=== PATIENT | female | born 1990 | race Caucasian/White ===

== ENCOUNTER 2016-12-10 20:11 | Outpatient (CLI) | payer OTHER | END 2016-12-10 21:28 | disposition home or self-care (01) | LOC: FBPOP 20:11 | PROVIDERS: ATTEND Obstetrics & Gynecology | DX: O99.89 Other specified diseases and conditions complicating pregnancy, childbirth and the puerperium (principal); R10.9 Unspecified abdominal pain; M54.9 Dorsalgia, unspecified; Z3A.36 36 weeks gestation of pregnancy | CPT/HCPCS: 59025; G0463; 99213 ==

== ENCOUNTER 2016-12-18 08:53 | Inpatient (IN) | payer OTHER ==
[2016-12-18] MEDS ORDERED: CARBOPROST TROMETHAMINE 250 MCG/ML 1 ML AMP IM PRN (09:31)
[2016-12-18] MEDS ORDERED: LIDOCAINE 1% (PF) 10 MG/ML (30 ML SDV) SQ PRN (09:31)
[2016-12-18] MEDS ORDERED: METHYLERGONOVINE 0.2 MG/ML 1 ML AMP IM PRN (09:31)
[2016-12-18] MEDS ORDERED: TERBUTALINE 1 MG/ML VIAL SQ PRN (09:31)
[2016-12-18] MEDS ORDERED: OXYTOCIN 10 UNIT/ML 1 ML VIAL IM PRN (09:31)
--- NOTE | 2016-12-18 09:44 | P.HPOB ---
History of Present Illness H&P Date: 12/18/16 Chief Complaint: Contractions This is a 26-year-old female 3 para 1 with an estimated date of confinement of 01/11/2017, estimated gestational age of 36-3/7 weeks, who presents to labor and delivery with complaints of contractions that a become stronger through the evening. She was seen in triage earlier in the evening with nausea and vomiting and flulike symptoms. She was given IV hydration and Zofran and did get better for a short while but that became more uncomfortable with contractions and pelvic pressure. She denied any rupture membranes. course has been, located by hip and back pain throughout her . labs: GC/chlamydia-negative Hepatitis B surface antigen-negative Random glucose-84 Hemoglobin-11.8 Rubella-immune Blood type-A+ Antibody screen-negative Toxoplasma screen-negative Syphilis antibody-negative HIV-nonreactive Quad screen-within normal limits Obstetrical ultrasound-normal anatomy One hour Glucola-135 Three-hour Glucola-within normal limits Group B streptococcus-negative Obstetrical history: . History of 1 vaginal delivery at 39 weeks. History of 1 miscarriage. Gynecologic history: No history of sexual transmitted diseases. Social history: She is . Review of Systems Gastrointestinal: Reports abdominal pain, Reports nausea, Reports vomiting Genitourinary: Reports pelvic pain, Reports Past Medical History Additional Past Medical History / Comment(s): anemia, scoliosis History of Any Multi-Drug Resistant Organisms: None Reported Past Surgical History: Orthopedic Surgery (Right arm) Additional Past Surgical History / Comment(s): D&C Past Psychological History: No Psychological Hx Reported Smoking Status: Never smoker Past Alcohol Use History: None Reported Past Drug Use History: None Reported Medications and Allergies Home Medications Medication Instructions Recorded Confirmed Type No Known Home Medications [No 11/24/16 12/18/16 History Known Home Medications] Allergies Allergy/AdvReac Type Severity Reaction Status Date / Time nickel Allergy Rash/Hives Verified 12/18/16 01:38 monosodium glutamate [MSG] AdvReac CONGESTION Verified 12/18/16 01:38 morphine AdvReac LOW OXYGEN Verified 12/18/16 01:38 LEVELS tramadol AdvReac DIZZY Verified 12/18/16 01:38 Exam Osteopathic Statement: *. No significant issues noted on an osteopathic structural exam other than those noted in the History and Physical/Consult. - Vital Signs Vital signs: Intake and Output 12/17/16 12/18/16 12/18/16 22:59 06:59 14:59 Other: Weight 103.873 kg Patient Weight 12/19/16 06:59 Weight 103.873 kg HEENT: Within normal limits Heart: Regular rate and rhythm Lungs: Clear to auscultation bilaterally Abdomen: Cervix: 4-1/2 cm/100%/-2 station heart tones: Reactive Contractions: Every 2-3 minutes Extremities: Negative Homans Assessment and Plan (1) 36 weeks gestation of Status: Acute Plan: Admission for active labor. Epidural anesthesia. Expectant management.
[2016-12-18] MEDS ORDERED: SODIUM CHLORIDE 0.9% 100 ML BAG ONE (09:45)
[2016-12-18] MEDS ORDERED: fentaNYL (PF) 50 MCG/ML 5 ML AMP ONE (09:45)
[2016-12-18] MEDS ORDERED: LACTATED RINGERS 1,000 ML IV SCH ×2 (09:45)
[2016-12-18] MEDS ORDERED: BUPIVACAINE (PF) 0.25% 30 ML VIAL ONE (09:45)
[2016-12-18 09:52] LABS: Basophils % (A) 0 %; CH 28.6; CHCM 32.7; Eosinophils % (A) 1 %; HCT 33.7 % (34.0-46.0); HDW 2.96; HGB 10.9 gm/dL (11.4-16.0); Luc % (Auto) 1; Lymphocytes # (A) 0.5 k/uL (1.0-4.8); Lymphocytes % (A) 5 %; MCH 28.5 pg (25.0-35.0); MCHC 32.3 g/dL (31.0-37.0); Mean Platelet Volume 7.4; Monocytes # (A) 0.3 k/uL (0-1.0); Monocytes % (A) 4 %; Neutrophils # (A) 8.1 k/uL (1.3-7.7); Neutrophils % (A) 89 %; RBC 3.83 m/uL (3.80-5.40); RDW 13.2 % (11.5-15.5); WBC 9.1 k/uL (3.8-10.6); WBC (Perox) 9.58
[2016-12-18 11:37] VITALS: BMI 39.3
--- NOTE | 2016-12-18 12:58 | P.PROBDLV ---
Vaginal Delivery Note - . Vaginal Delivery Note: The patient progressed to complete dilation after artificial rupture membranes with clear fluid noted. She progressed on her own in labor. She did receive epidural anesthesia. Once reaching complete dilation, she began pushing. 's head came to a crown and then delivered across an intact perineum. Baby completely delivered and was placed on mother's abdomen. Nose and mouth were bulb suctioned on mother's abdomen. Cord was clamped and cut and was taken to warmer for evaluation. A viable female is noted with scores of 9 at 1 minute and 10 at 5 minutes. Infant weight is pending at this time. Placenta delivered shortly thereafter, intact, with a three-vessel cord. Uterus contracted well after oxytocin was given and uterine massage was carried out. Inspection of the perineum revealed no perineal lacerations. Estimated blood loss was approximately 100 mL's. Both mother and are in stable condition.
[2016-12-18] MEDS ORDERED: ZOLPIDEM 5 MG TAB PO PRN (13:05)
[2016-12-18] MEDS ORDERED: diphenhydrAMINE 25 MG CAP PO PRN (13:05)
[2016-12-18] MEDS ORDERED: diphenhydrAMINE 50 MG/ML 1 ML VIAL IVP PRN ×2 (13:05)
[2016-12-18] MEDS ORDERED: LANOLIN CREAM 5 GM TUBE TOPICAL PRN (13:05)
[2016-12-18] MEDS ORDERED: SIMETHICONE 80 MG CHEWABLE PO PRN (13:05)
[2016-12-18] MEDS ORDERED: HYDROCORTISONE 2.5% RECTAL CREAM 30 GM TUBE RECTAL PRN (13:05)
[2016-12-18] MEDS ORDERED: diphenhydrAMINE 50 MG CAP PO PRN (13:05)
[2016-12-18] MEDS ORDERED: BENZOCAINE/MENTHOL SPRAY 1 GM/SPRAY AEROSOL TOPICAL PRN (13:05)
[2016-12-18] MEDS ORDERED: WITCH HAZEL 1 EACH MED..PAD TOPICAL PRN (13:05)
[2016-12-18] MEDS ORDERED: OXYTOCIN 30 UNITS/500 ML NS 30 UNIT in SALINE 1 500ML.BAG IV SCH (13:05)
[2016-12-18] MEDS ORDERED: ACETAMINOPHEN TAB 325 MG TAB PO PRN (13:05)
[2016-12-18] MEDS ORDERED: Acetaminophen-Codeine 300-30mg TAB PO PRN ×2 (13:05)
[2016-12-18] MEDS: SENNOSIDES-DOCUSATE SODIUM 1 EACH TAB PO SCH ×2 (20:22→21:06)
[2016-12-19] MEDS: SENNOSIDES-DOCUSATE SODIUM 1 EACH TAB PO SCH ×2 (08:10→19:39)
[2016-12-19] MEDS: IBUPROFEN 600 MG TAB PO PRN ×2 (08:10→16:01)
[2016-12-19 09:09] LABS: Basophils % (A) 0 %; CH 28.7; CHCM 32.9; Eosinophils % (A) 1 %; HCT 31.1 % (34.0-46.0); HDW 2.97; Luc # (Auto) 0.21; Luc % (Auto) 3; Lymphocytes # (A) 0.9 k/uL (1.0-4.8); Lymphocytes % (A) 11 %; MCH 28.3 pg (25.0-35.0); MCHC 32.4 g/dL (31.0-37.0); MCV 87.5 fL (80.0-100.0); Mean Platelet Volume 7.3; Monocytes # (A) 0.5 k/uL (0-1.0); Monocytes % (A) 6 %; Neutrophils # (A) 6.5 k/uL (1.3-7.7); Neutrophils % (A) 80 %; RBC 3.55 m/uL (3.80-5.40); RDW 13.2 % (11.5-15.5); WBC (Perox) 8.39
--- NOTE | 2016-12-19 11:15 | P.PNOBGVD ---
Subjective - Subjective Principal diagnosis: Status post vaginal delivery day 1 Interval history: Patient is doing well. She is bottle feeding. Lochia is decreasing. Pain is fairly well controlled on oral pain medications. Patient reports: Reports appetite normal, Reports voiding normally, Reports pain well controlled, Reports ambulating normally : doing well, bottle feeding Objective - Latest Vital Signs Latest vital signs: Vital Signs Temp Pulse Resp BP 12/19/16 08:00 97.7 F 86 17 133/82 12/19/16 00:00 98.4 F 103 H 16 100/62 12/18/16 20:00 98.0 F 97 16 139/79 12/18/16 16:00 99.9 F H 85 16 115/73 12/18/16 15:05 117 H 16 130/82 12/18/16 14:35 108 H 16 121/65 12/18/16 14:05 103 H 16 119/72 12/18/16 13:50 108 H 16 118/71 12/18/16 13:35 105 H 16 115/70 12/18/16 13:20 100 16 116/65 12/18/16 13:05 98.4 F 108 H 16 120/61 Intake and Output 12/18/16 12/19/16 12/19/16 22:59 06:59 14:59 Other: # Voids 1 1 - Exam Abdomen: Present: normal appearance, soft. Absent: distention, tenderness Uterus: Present: normal, firm. Absent: tenderness - Labs Labs: Abnormal Lab Results - Last 24 Hours (Table) 12/19/16 Range/Units 08:32 RBC 3.55 L (3.80-5.40) m/uL Hgb 10.0 L (11.4-16.0) gm/dL Hct 31.1 L (34.0-46.0) % Lymphocytes # 0.9 L (1.0-4.8) k/uL Assessment and Plan (1) 36 weeks gestation of Narrative/Plan: Impression is status post vaginal delivery day #1. Plan is to discharge home tomorrow. Continue care. Current Visit: Yes Status: Acute Code(s): Z3A.36 - 36 WEEKS GESTATION OF SNOMED Code(s): 58033039
[2016-12-19 16:34] VITALS: RESP 16
[2016-12-20] MEDS: IBUPROFEN 600 MG TAB PO PRN (08:31)
[2016-12-20 08:40] VITALS: BP 116/82; PULSE 94; TEMP 97.5
--- NOTE | 2016-12-20 08:40 | P.DS ---
Providers Date of admission: 12/18/16 09:10 Expected date of discharge: 12/20/16 Attending physician: Clarita Mart Primary care physician: Stated None - Discharge Diagnosis(es) (1) 36 weeks gestation of Current Visit: Yes Status: Acute Hospital Course: This is a 26-year-old female 3 para 1 at 36-4/7 weeks who presented to labor and delivery with active labor. She delivered vaginally a viable female infant on 12/18/2016 with scores of 9 at 1 minute and 10 at 5 minutes and weight of 6 lbs. 14 oz. Her course has been uncomplicated. Lochia is decreasing. Pain is well-controlled with ibuprofen. She is bottle feeding. Vital signs are stable. Abdomen is soft with fundus firm and nontender. Extremities show negative Homans. Impression is status post vaginal delivery day #2. Plan is to discharge home today. Routine instructions are given. She will be given a prescription for ibuprofen for pain as needed. She is advised follow-up in the office in 6 weeks for check. She is advised to call the office if she has any further questions or concerns prior to her appointment time. Procedures: Spontaneous vaginal delivery of a viable female on 12/18/2016 Patient Condition at Discharge: Stable Plan - Discharge Summary New Discharge Prescriptions: Ibuprofen [Motrin] 600 mg PO Q6HR PRN #60 tab PRN Reason: Mild Pain Or Fever >= 100.5 Discharge Medication List Ibuprofen [Motrin] 600 mg PO Q6HR PRN #60 tab 12/19/16 [Rx] Follow up Appointment(s)/Referral(s): Clarita Mart DO [Doctor of Osteopathic Medicine] - 6 Weeks Activity/Diet/Wound Care/Special Instructions: Instructions 1. Do not begin any exercise program for 3 weeks. 2. Do not resume sexual relations for 3 weeks or longer if uncomfortable. 3. You may take tub baths or showers at any time. 4. You may use tampons if desired after 3 weeks. 5. Keep the area of episiotomy (stitches) clean and dry. 6. If you are not nursing, wear a good fitting, supportive bra during the day and limit fluid intake for at least 1 week to prevent breast engorgement. 7. Call the office, [phone], within the next week to make appointment for your 6 week checkup if it has not already been made. 8. Report any of the following occurrences to the doctor promptly: a. Heavy, excessive bleeding b. Chills, fever c. Burning or frequency of urination d. Pain or redness and breasts if nursing e. Increasing pain or swelling in episiotomy (stitches). In addition to the above instructions, the following additional should be followed: 1. No heavy lifting or straining (exercising) until after 6 week checkup. 2. Keep abdominal incision clean and dry: You may wear a dressing if more comfortable. 3. Make office appointment for 10 days after going home or as instructed by her doctor. Discharge Disposition: HOME SELF-CARE
[2016-12-20] MEDS ORDERED: CALCIUM CARBONATE 500 MG CHEWABLE PO PRN (08:53)
[2016-12-20] MEDS: SENNOSIDES-DOCUSATE SODIUM 1 EACH TAB PO SCH (09:47)
== END 2016-12-20 12:00 | disposition home or self-care (01) | DRG 775 ==
LOC: FBPOP 08:53 → 4FBP 09:10
PROVIDERS: ADMIT Obstetrics & Gynecology; ATTEND Obstetrics & Gynecology
PROC: 10E0XZZ Delivery of Products of Conception, External Approach (ICD-10-PCS; principal; 2016-12-18)
PROC: 3E0R3CZ (ICD-10-PCS; principal; 2016-12-18)
PROC: 00HU33Z Insertion of Infusion Device into Spinal Canal, Percutaneous Approach (ICD-10-PCS; principal; 2016-12-18)
PROC: 10907ZC Drainage of Amniotic Fluid, Therapeutic from Products of Conception, Via Natural or Artificial Opening (ICD-10-PCS; principal; 2016-12-18)
DX: O60.14X0 Preterm labor third trimester with preterm delivery third trimester, not applicable or unspecified (principal); Z88.5 Allergy status to narcotic agent; Z37.0 Single live birth; Z3A.36 36 weeks gestation of pregnancy
CPT/HCPCS: 59025; 85025; 88307; 96360; 96375; 99214

== ENCOUNTER → 2017-02-22 | Outpatient (CLI) | payer OTHER ==
[2017-02-22 17:27] LABS: Aty Lym Flag Slight; CH 28.3; CHCM 31.6; HCT 39.8 % (34.0-46.0); HDW 2.13; HGB 12.8 gm/dL (11.4-16.0); MCH 28.9 pg (25.0-35.0); MCHC 32.2 g/dL (31.0-37.0); MCV 89.8 fL (80.0-100.0); Mean Platelet Volume 6.9; RBC 4.43 m/uL (3.80-5.40); RDW 14.7 % (11.5-15.5); WBC 6.1 k/uL (3.8-10.6)
[2017-02-22 17:53] LABS: Add Differential Manual Differential
[2017-02-22 17:56] LABS: Nucleated Red Blood Cells 0 /100 WBC (0-0); Total Cells Counted 100
[2017-02-22 17:57] LABS: Manual Review Performed; Toxic Granulation Present
== END | disposition home or self-care (01) ==
LOC: LABPAT 15:01
PROVIDERS: ATTEND Obstetrics & Gynecology
DX: Z01.812 Encounter for preprocedural laboratory examination (principal)
CPT/HCPCS: 85025

== ENCOUNTER → 2017-06-20 | Outpatient (CLI) | payer OTHER ==
[2017-06-20 11:54] LABS: CH 30.5; HCT 36.6 % (34.0-46.0); HDW 2.08; HGB 12.6 gm/dL (11.4-16.0); MCHC 34.4 g/dL (31.0-37.0); Mean Platelet Volume 7.4; RBC 4.07 m/uL (3.80-5.40); RDW 14.2 % (11.5-15.5); WBC 7.7 k/uL (3.8-10.6)
[2017-06-20 12:06] LABS: Glucose 75 mg/dL (74-99); Non-African American GFR(MDRD) >60 (>60 ml/min/1.73 sqM)
[2017-06-20 12:38] LABS: Hepatitis B Surface Ag Index 0.05
[2017-06-20 15:37] LABS: Treponemal Ab Non-Reactive (Non-Reactive)
[2017-06-21 09:52] LABS: Toxoplasma Antibody (IgG) <3.0 IU/mL (<7.2)
== END | disposition home or self-care (01) ==
LOC: LABWHC1 10:59
PROVIDERS: ATTEND Obstetrics & Gynecology
DX: Z34.81 Encounter for supervision of other normal pregnancy, first trimester (principal); R53.83 Other fatigue
CPT/HCPCS: 36415; 82565; 82947; 85027; 86762; 86777; 86778; 86780; 86850; 86900; 86901; 87340; 87390

== ENCOUNTER → 2017-06-24 | Outpatient (CLI) | payer OTHER ==
--- NOTE | 2017-06-24 07:46 | US ---
EXAMINATION TYPE: US OB <= 14 wk fetus DATE OF EXAM: 06/24/2017 COMPARISON: Previous study dated 05/02/2016. CLINICAL HISTORY: Z36 Confirm Dates. EXAM PERFORMED: Transabdominal (TA) EXAM MEASUREMENTS: GESTATIONAL AGE / DATING Physician Established: not yet established Dates by LMP: (9 weeks/6 days) EDC: 01/21/17 Dates by First Scan: 1st scan today Dates by Current Scan for: (9 weeks/4 days) EDC: 01/23/17 MATERNAL ANATOMY Uterus: 11.5 x 6.4 x 8.2cm Right Ovary: 2.5 x 1.4 x 2.0cm Left Ovary: 3.7 x 1.7 x 1.6cm Post CDS / Adnexa: wnl Presence of free fluid: no GESTATION / SURVEY CRL: 2.7 (9 weeks/4 days) Yolk Sac (normal less than 6mm): 4mm Heart Rate: 168 bpm Rhythm: Normal IUP: Viable IUP Date of LMP: 04/16/17 Beta HcG (if available): not available Viable IUP, dates above. IMPRESSION: VIABLE INTRAUTERINE GESTATION WITH A GESTATIONAL AGE OF 9 WEEKS 4 DAYS +/- 5 DAYS. ESTIMATED DATE OF CONFINEMENT BASED ON THIS EXAMINATION IS
== END | disposition home or self-care (01) ==
LOC: RADUSWWP 07:06
PROVIDERS: ATTEND Obstetrics & Gynecology
DX: Z36 Encounter for antenatal screening of mother (principal); Z3A.09 9 weeks gestation of pregnancy
CPT/HCPCS: 76801

== ENCOUNTER → 2017-08-09 | Outpatient (CLI) | payer OTHER ==
[2017-08-10 10:27] LABS: Alpha Fetoprotein 47.3 ng/mL; Alpha Fetoprotein (M.O.M) 1.82; B-HCG (M.O.M.) 0.53; Gestational Age (days) 3; Human Chorionic Gonadotropin 13.4 IU/mL; Inhibin A (M.O.M.) 0.95; Interpretation SeeBelow; Maternal Age at EDD (Yrs) 29; Smoker No; Unconjugated Estriol (M.O.M.) 1.54
== END | disposition home or self-care (01) ==
LOC: LABWHC1 11:17
PROVIDERS: ATTEND Obstetrics & Gynecology
DX: Z34.82 Encounter for supervision of other normal pregnancy, second trimester (principal)
CPT/HCPCS: 36415; 82105; 82677; 84702; 86336

== ENCOUNTER → 2017-10-08 | Outpatient (CLI) | payer OTHER ==
[2017-10-08 12:13] LABS: CH 30.2; CHCM 32.3; HCT 32.1 % (34.0-46.0); HDW 2.33; HGB 10.4 gm/dL (11.4-16.0); MCH 30.4 pg (25.0-35.0); MCHC 32.2 g/dL (31.0-37.0); MCV 94.2 fL (80.0-100.0); Mean Platelet Volume 7.6; RBC 3.41 m/uL (3.80-5.40); RDW 13.9 % (11.5-15.5); WBC 6.8 k/uL (3.8-10.6)
== END | disposition home or self-care (01) ==
LOC: LABWHC1 10:53
PROVIDERS: ATTEND Obstetrics & Gynecology
DX: Z34.82 Encounter for supervision of other normal pregnancy, second trimester (principal); Z3A.00 Weeks of gestation of pregnancy not specified
CPT/HCPCS: 36415; 82950; 85027

== ENCOUNTER 2017-11-21 17:45 | Observation (INO) | payer OTHER ==
[2017-11-21] MEDS ORDERED: ONDANSETRON 4 MG/2 ML VIAL IM STA (18:52)
[2017-11-21] MEDS: LACTATED RINGERS 1,000 ML IV ONE ×4 (19:11→23:28)
[2017-11-21 19:24] LABS: Basophils % (A) 0 %; Eosinophils % (A) 0 %; HCT 30.9 % (34.0-46.0); HGB 10.1 gm/dL (11.4-16.0); Lymphocytes # (A) 0.5 k/uL (1.0-4.8); Lymphocytes % (A) 6 %; MCH 29.6 pg (25.0-35.0); MCHC 32.5 g/dL (31.0-37.0); MCV 90.9 fL (80.0-100.0); Mean Platelet Volume 7.5; Monocytes # (A) 0.4 k/uL (0-1.0); Monocytes % (A) 5 %; Neutrophils # (A) 6.8 k/uL (1.3-7.7); Neutrophils % (A) 87 %; Platelet Count 274 k/uL (150-450); RDW 12.8 % (11.5-15.5); WBC 7.8 k/uL (3.8-10.6)
[2017-11-21 20:08] LABS: Appearance,Urine Clear (Clear); Bilirubin,Urine Negative (Negative); Blood,Urine Negative (Negative); Color,Urine Yellow; Glucose,Urine (UA) Negative (Negative); Ketones,Urine 4+ (Negative); Leukocyte Esterase,Urine Negative (Negative); Mucus,Urine Few /hpf; Nitrite,Urine Negative (Negative); Protein,Urine 1+ (Negative); Specific Gravity,Urine 1.019 (1.001-1.035); Squamous Epithelial Cell,Urine 2 /hpf (0-4); Urobilinogen,Urine <2.0 mg/dL (<2.0); WBC,Urine 1 /hpf (0-5)
[2017-11-21] MEDS: BETAMET ACET-BETAMETH SOD PHOS 6 MG/ML VIAL IM SCH (20:41)
[2017-11-21] MEDS: BUTORPHANOL 1 MG/ML 1 ML VIAL IV PRN ×2 (20:56→23:29)
[2017-11-21 21:09] VITALS: BMI 40.7
[2017-11-22] MEDS ORDERED: BUTORPHANOL 1 MG/ML 1 ML VIAL IV PRN (02:50)
[2017-11-22] MEDS: LACTATED RINGERS 1,000 ML IV ONE (02:58)
[2017-11-22] MEDS ORDERED: MAG HYDROX/AL HYDROX/SIMETH 30 ML CUP PO PRN (10:00)
--- NOTE | 2017-11-22 10:09 | P.HPOB ---
History of Present Illness H&P Date: 11/22/17 Chief Complaint: contractions, nausea and vomiting This is a 26-year-old female 4 para 2, with a gestational age of 31-2/7 weeks, who presented to labor and delivery with complaints of nausea and vomiting and contractions. She was seen in triage earlier in the day after reporting vomiting since 4:30 in the morning. She was given 1 L of fluid and was not noted to be yelitza regularly at that time. She returned later in the day after she still was unable to hold anything down and she began feeling strong painful contractions and pressure. She denied any rupture of membranes. course was uncomplicated up until this point other than the fact that baby has been diagnosed with a cleft lip and palate and will need surgery post delivery. She does plan to deliver at [facility] and has seen the maternal medicine specialist there. She was noted to be yelitza every 2 minutes upon admission. Her cervix did change in triage from 1 cm to 2 cm per the same nurse. She had 4+ ketones noted on her urinalysis and her FFN was negative. Obstetrical history: . History of 2 vaginal deliveries. Her last delivery was at 36-5/7 weeks. Review of Systems Constitutional: Reports chills, Reports lethargy Eyes: denies blurred vision, denies pain Ears, nose, mouth and throat: Reports sore throat Cardiovascular: Denies chest pain, Denies shortness of breath Respiratory: Reports congestion Gastrointestinal: Reports abdominal pain, Reports diarrhea, Reports nausea, Reports vomiting (actions) Genitourinary: Reports pelvic pain, Reports Musculoskeletal: Reports low back pain, Reports myalgias Neurological: Denies numbness, Denies weakness Psychiatric: Reports anxiety Past Medical History Past Medical History: No Reported History Additional Past Medical History / Comment(s): anemia, scoliosis History of Any Multi-Drug Resistant Organisms: None Reported Past Surgical History: Orthopedic Surgery Additional Past Surgical History / Comment(s): D&C Past Anesthesia/Blood Transfusion Reactions: No Reported Reaction Past Psychological History: No Psychological Hx Reported Smoking Status: Never smoker Past Alcohol Use History: None Reported Past Drug Use History: None Reported - Past Family History Mother Family Medical History: Cancer Father Family Medical History: Diabetes Mellitus Medications and Allergies Home Medications Medication Instructions Recorded Confirmed Type Calcium Carbonate [Tums] 500 mg PO TID PRN 02/28/17 11/21/17 History Allergies Allergy/AdvReac Type Severity Reaction Status Date / Time nickel Allergy Rash/Hives Verified 11/21/17 20:44 monosodium glutamate [MSG] AdvReac CONGESTION Verified 11/21/17 20:44 morphine AdvReac LOW OXYGEN Verified 11/21/17 20:44 LEVELS tramadol AdvReac DIZZY Verified 11/21/17 20:44 Exam Osteopathic Statement: *. No significant issues noted on an osteopathic structural exam other than those noted in the History and Physical/Consult. - Vital Signs Vital signs: Vital Signs Temp Pulse Resp BP Pulse Ox 11/21/17 20:43 99.1 F 101 H 16 101/56 11/21/17 20:19 99.1 F 101 H 16 101/56 97 11/21/17 18:40 97.7 F 118 H 18 135/75 Intake and Output 11/21/17 11/22/17 11/22/17 22:59 06:59 14:59 Intake Total 1000 Balance 1000 Intake: IV 1000 Lactated Ringers 1,000 ml 1000 @ 999 mls/hr IV .Q1H1M ONE Rx#:[id number] Other: # Voids 1 Weight 104.326 kg EENT: Within normal limits Heart: Regular rate and rhythm Lungs: Clear to auscultation bilaterally Abdomen: Soft, nontender Pelvic exam: Cervix is 1-1/2 cm/40%/-2 station but ballotable. heart tones: Are reactive with no contractions noted for several hours now. Extremities: Negative Homans Results Result Diagrams: 11/21/17 19:13 Abnormal Lab Results - Last 24 Hours (Table) 11/21/17 11/21/17 Range/Units 19:13 19:21 RBC 3.40 L (3.80-5.40) m/uL Hgb 10.1 L (11.4-16.0) gm/dL Hct 30.9 L (34.0-46.0) % Lymphocytes # 0.5 L (1.0-4.8) k/uL Urine Protein 1+ H (Negative) Urine Ketones 4+ H (Negative) Urine Mucus Few H (None) /hpf Assessment and Plan (1) labor in third trimester without delivery Current Visit: Yes Status: Acute Code(s): O60.03 - LABOR WITHOUT DELIVERY, THIRD TRIMESTER SNOMED Code(s): 1735383 (2) Vomiting in late , not delivered Current Visit: Yes Status: Acute Code(s): O21.2 - LATE VOMITING OF SNOMED Code(s): 411146604 Plan: Plan is admission for IV hydration. We'll give Celestone 2 doses 24 hours apart. We'll continue with bed rest and observation. Since her contractions have stopped this morning, we'll continue to observe today and await her second dose of Celestone before discharge. If she does break through and starts yelitza again, may need to attempt transfer to [facility]. She may be discharged home on modified bedrest after 2nd Celestone shot. She is advised to followup in the office in 1 week and return if ctxs resume.
--- NOTE | 2017-11-22 10:12 | P.DS ---
Providers Date of admission: 11/21/17 20:29 Expected date of discharge: 11/22/17 Attending physician: Clarita Mart Primary care physician: Stated None - Discharge Diagnosis(es) (1) labor in third trimester without delivery Current Visit: Yes Status: Acute (2) Vomiting in late , not delivered Current Visit: Yes Status: Acute Hospital Course: This is a 26-year-old female 4 para 2 at 31-3/7 weeks who was admitted overnight for nausea and vomiting along with severe dehydration. She was noted to be yelitza regularly and did receive several doses of IV Stadol for pain control. After approximately 3 L of fluid, her contractions began to space out and finally stopped this morning. Her nausea and vomiting has also stopped this morning. I have advised her we will give her regular food and get her up to the shower and moving around her room a little bit. As long as her contractions do not resume, the plan is to discharge her home today after her second Celestone shot this evening. She is advised to continue with modified bedrest with no intercourse. She is advised to follow up in the office in 1 week. She is advised to return to the hospital if any further contraction pattern is noted. Patient Condition at Discharge: Stable Plan - Discharge Summary New Discharge Prescriptions: No Action Calcium Carbonate [Tums] 500 mg PO TID PRN PRN Reason: Heartburn Discharge Medication List Calcium Carbonate [Tums] 500 mg PO TID PRN 02/28/17 [History] Follow up Appointment(s)/Referral(s): Clarita Mart DO [Doctor of Osteopathic Medicine] - 1 Week Activity/Diet/Wound Care/Special Instructions: No intercourse. Off feet as much as possible. Discharge Disposition: HOME SELF-CARE
[2017-11-22 13:01] VITALS: BP 128/73; PULSE 87; RESP 17; TEMP 97.8
[2017-11-22] MEDS: ACETAMINOPHEN TAB 325 MG TAB PO PRN ×2 (14:48→18:34)
[2017-11-22] MEDS: BETAMET ACET-BETAMETH SOD PHOS 6 MG/ML VIAL IM SCH (19:58)
--- NOTE | 2017-11-24 08:53 | P.MSEPDOC ---
Presenting Problems - Arrival Data Date of Arrival on Unit: 11/21/17 Time of Arrival on Unit: 17:45 Mode of Transport: Wheelchair - Complaint OB-Reason for Admission/Chief Complaint: Acute Nausea/Vomiting Comment: reports vomited once since discharged from triage, currently having pelvic pain Medical History - Information : 4 Para: 2 Term: 2 : 0 Abortions: Spontaneous or Elective: 1 Number of Living Children: 2 - Gestational Age Gestational Age by [place] (wks/days): 31 Weeks and 3 Days - History Complications: No Care Review of Systems - Review of Systems Constitutional: No problems Breast: No problems ENT: No problems Cardiovascular: No problems Respiratory: No problems Gastrointestinal: No problems Genitourinary: No problems Musculoskeletal: No problems Neurological: No problems Skin: No problems Comment: vomiting Vital Signs - Temperature Temperature: 97.8 F Temperature Source: Temporal Artery Scan - Pulse Right Brachial Pulse Rate: 87 Pulse Assessment Method: Pulse Oximetry - Respirations Respiratory Rate: 17 Oxygen Delivery Method: Room Air O2 Sat by Pulse Oximetry: 97 - Blood Pressure Right Arm Blood Pressure: 128/73 Blood Pressure Mean: 91 Blood Pressure Source: Automatic Cuff Medical Screen Scoring (Pre) - Cervical Exam Dilation: 1-3 cm = 1 Membranes: Intact - Uterine Contractions Frequency: > 5 minutes apart = 1 Duration: > 40 seconds = 2 - Maternal Vital Signs Maternal Temperature: N/A Maternal Blood Pressure: N/A Signs of Preeclampsia: N/A Maternal Respirations: N/A - Pain Assessment Pain Scale Used: Numeric (1 - 10) Pain Intensity: 7 Pain Description: *Acute Pain Frequency: Intermittent Pain Behavior: Vocalization - Maternal Trauma Maternal Trauma: N/A - Assessment Baseline FHR: 145 Heart Rate - NICHD Category: Category I (Normal) = 0 NST: Reactive Position: N/A - Total Score Total Score (Pre): 4 - Level of Risk Level of Risk: Low (0-5) Physician Notification (Pre) - Physician Notified Physician Notified Date: 11/21/17 Physician Notified Time: 08:40 Physician/Practitioner Notifed:: jesus Spoke With: jesus New Order Received: Yes - Notification Comment Comment: report given, ffn sent, cervical dilation or 1, thick, soft and anterior. contractions and irritabiliy tracing. orders iv hydration and offers zofran if pt was unable to keep home dose down Medical Screen Scoring (Post) - Cervical Exam Dilation: 1-3 cm = 1 Membranes: Intact - Uterine Contractions Frequency: < 36 weeks = 6 Duration: N/A Intensity: N/A - Maternal Vital Signs Maternal Temperature: N/A Maternal Blood Pressure: N/A Signs of Preeclampsia: N/A Maternal Respirations: N/A - Pain Assessment Pain Location and Character: Abdomen Pain Scale Used: Numeric (1 - 10) Pain Intensity: 7 Pain Description: *Acute, Aching, Cramping Pain Frequency: Intermittent Pain Duration: 5 Pain Duration Units: Minutes Pain Behavior: Facial Grimacing, Vocalization Pain Aggravating Factors: Contractions Non-Pharmacological Interventions: Heat - Assessment Heart Rate: 145 Heart Rate - NICHD Category: Category I (Normal) = 0 NST: Reactive Position: N/A Station: N/A - Total Score Total Score (Post): 7 - Post Treatment Level of Risk Post Treatment Level of Risk: Medium (6-9) Physician Notification (Post) - Physician Notified Physician Notified Date: 11/21/17 Physician Notified Time: 20:19 Physician/Practitioner Notified:: Dr. Mart Spoke With: Dr. Mart New Order Received: Yes (Admit pt for OBV) - Notification Comment Comment: reviewed MSE by Jozef Diaz, pt admitted for OBV Disposition - Disposition OB Disposition: Observe Discharge Date: 11/22/17 Discharge Time: 20:00 I agree with the RN Medical Screening Exam: Yes Risk & Benefit of care provided described in d/c instruction: Yes Diagnosis: LABOR WITHOUT DELIVERY, THIRD TRIMESTER
== END 2017-11-22 20:00 | disposition home or self-care (01) ==
LOC: FBPOP 17:45 → 4FBP 20:29
PROVIDERS: ADMIT Obstetrics & Gynecology; ATTEND Obstetrics & Gynecology
DX: O60.03 Preterm labor without delivery, third trimester (principal); E86.0 Dehydration; O21.2 Late vomiting of pregnancy; Z3A.31 31 weeks gestation of pregnancy; Z88.5 Allergy status to narcotic agent; Z91.048 Other nonmedicinal substance allergy status; Z83.3 Family history of diabetes mellitus
CPT/HCPCS: 59025; 96376; 96360; 96372 ×2; 96374; 82731; 85025; 81001; G0463; G0378 ×2; J0702 ×2; J0595; 99214

== ENCOUNTER 2017-12-11 16:45 | Outpatient (CLI) | payer OTHER ==
[2017-12-11 17:16] LABS: Appearance,Urine Cloudy (Clear); Bacteria,Urine Few /hpf; Bilirubin,Urine Negative (Negative); Blood,Urine Negative (Negative); Color,Urine Yellow; Glucose,Urine (UA) Negative (Negative); Ketones,Urine 1+ (Negative); Leukocyte Esterase,Urine Large (Negative); Mucus,Urine Few /hpf; Nitrite,Urine Negative (Negative); Protein,Urine Trace (Negative); RBC,Urine 3 /hpf (0-5); Specific Gravity,Urine 1.016 (1.001-1.035); Squamous Epithelial Cell,Urine 23 /hpf (0-4); Urobilinogen,Urine <2.0 mg/dL (<2.0); WBC,Urine 7 /hpf (0-5)
[2017-12-11] MEDS: LACTATED RINGERS 1,000 ML IV ONE ×2 (17:48→18:22)
[2017-12-11 18:00] VITALS: BP 121/86; PULSE 99; RESP 16; TEMP 97.5
--- NOTE | 2017-12-14 20:05 | P.MSEPDOC ---
Presenting Problems - Arrival Data Date of Arrival on Unit: 12/11/17 Time of Arrival on Unit: 16:50 Mode of Transport: Wheelchair - Complaint OB-Reason for Admission/Chief Complaint: Possible Onset of Labor Comment: pt reports contractions since 1430 this afternoon, reports 8 minutes apart Medical History - Information : 4 Para: 2 Term: 2 : 0 Abortions: Spontaneous or Elective: 1 Number of Living Children: 2 - Gestational Age Gestational Age by [place] (wks/days): 34 Weeks and 1 Days Review of Systems - Review of Systems Constitutional: No problems Breast: No problems ENT: No problems Cardiovascular: No problems Respiratory: No problems Gastrointestinal: No problems Genitourinary: No problems Musculoskeletal: No problems Neurological: No problems Skin: No problems Vital Signs - Temperature Temperature: 97.5 F Temperature Source: Tympanic - Pulse Right Brachial Pulse Rate: 99 Pulse Assessment Method: Automatic Cuff - Respirations Respiratory Rate: 16 Oxygen Delivery Method: Room Air - Blood Pressure Right Arm Blood Pressure: 121/86 Blood Pressure Mean: 97 Blood Pressure Source: Automatic Cuff Medical Screen Scoring (Pre) - Cervical Exam Dilation: 1-3 cm = 1 Membranes: Intact - Uterine Contractions Frequency: > 5 minutes apart = 1 Duration: > 40 seconds = 2 - Maternal Vital Signs Maternal Temperature: N/A Maternal Blood Pressure: N/A Signs of Preeclampsia: N/A Maternal Respirations: N/A - Pain Assessment Pain Location and Character: Upper, Abdomen Pain Scale Used: Numeric (1 - 10) Pain Intensity: 7 Pain Description: *Acute Pain Frequency: Occasional Pain Duration Units: Minutes Pain Behavior: None Exhibited Pain Aggravating Factors: Contractions - Maternal Trauma Maternal Trauma: N/A - Assessment Baseline FHR: 140 Heart Rate - NICHD Category: Category I (Normal) = 0 NST: Reactive Position: N/A Station: N/A - Total Score Total Score (Pre): 4 - Level of Risk Level of Risk: Low (0-5) Physician Notification (Pre) - Physician Notified Physician Notified Date: 12/11/17 Physician Notified Time: 17:30 Physician/Practitioner Notifed:: jacquelyn Spoke With: jacquelyn - Notification Comment Comment: reported pt to triage c/o contractions, reported ffn and ua collected with ua results available. reported reactive nst and contractions 8 to 15 minutes apart with cervical check of 1.5 thick and ballottable. would like ffn sent, iv hydration with 2L bolus. pt may be discharged if nothing changes clinically after iv hydration. Medical Screen Scoring (Post) - Cervical Exam Membranes: Intact - Uterine Contractions Frequency: > 5 minutes apart = 1 Duration: > 40 seconds = 2 Intensity: N/A - Maternal Vital Signs Maternal Temperature: N/A Maternal Blood Pressure: N/A Signs of Preeclampsia: N/A Maternal Respirations: N/A - Assessment Heart Rate - NICHD Category: Category I (Normal) = 0 - Total Score Total Score (Post): 3 - Post Treatment Level of Risk Post Treatment Level of Risk: Low (0-5) Physician Notification (Post) - Notification Comment Comment: Orders to d/c pt if FFN neg. and after fluids infused. Disposition - Disposition OB Disposition: Discharge to home Discharge Date: 12/11/17 Discharge Time: 18:53 I agree with the RN Medical Screening Exam: Yes Risk & Benefit of care provided described in d/c instruction: Yes Diagnosis: FALSE LABOR BEFORE 37 COMPLETED WEEKS OF GEST, THIRD TRI
== END 2017-12-11 18:55 | disposition home or self-care (01) ==
LOC: FBPOP 16:45
PROVIDERS: ATTEND Obstetrics & Gynecology
DX: O47.03 False labor before 37 completed weeks of gestation, third trimester (principal); Z3A.34 34 weeks gestation of pregnancy
CPT/HCPCS: 59025; 96360; 96361; 82731; 81001; G0463; 99214

== ENCOUNTER → 2017-12-16 | Outpatient (CLI) | payer OTHER ==
[2017-12-16 15:13] VITALS: BP 134/82; PULSE 88; RESP 16; TEMP 97.9
--- NOTE | 2017-12-16 16:42 | P.MSEPDOC ---
Presenting Problems - Arrival Data Date of Arrival on Unit: 12/16/17 Time of Arrival on Unit: 14:48 Mode of Transport: Ambulatory - Complaint OB-Reason for Admission/Chief Complaint: NST Medical History - Information : 4 Para: 2 Term: 2 : 0 Abortions: Spontaneous or Elective: 1 Number of Living Children: 2 - Gestational Age Gestational Age by [place] (wks/days): 34 Weeks and 6 Days - History Complications: Prior Review of Systems - Review of Systems Constitutional: No problems Breast: No problems ENT: No problems Cardiovascular: No problems Respiratory: No problems Gastrointestinal: No problems Genitourinary: No problems Musculoskeletal: No problems Neurological: No problems Skin: No problems Vital Signs - Temperature Temperature: 97.9 F Temperature Source: Oral - Pulse Right Brachial Pulse Rate: 88 Pulse Assessment Method: Automatic Cuff - Respirations Respiratory Rate: 16 Oxygen Delivery Method: Room Air O2 Sat by Pulse Oximetry: 98 - Blood Pressure Right Arm Blood Pressure: 134/82 Blood Pressure Mean: 99 Blood Pressure Source: Automatic Cuff Medical Screen Scoring (Pre) - Uterine Contractions Frequency: N/A Duration: N/A Intensity: N/A - Maternal Vital Signs Maternal Temperature: N/A Signs of Preeclampsia: N/A Maternal Respirations: N/A - Pain Assessment Pain Scale Used: Numeric (1 - 10) Pain Intensity: 0 Pain Management Goal: 0 Pain Behavior: None Exhibited - Assessment Baseline FHR: 130 Heart Rate - NICHD Category: Category I (Normal) = 0 - Total Score Total Score (Pre): 0 Physician Notification (Post) - Physician Notified Physician Notified Date: 12/16/17 Physician Notified Time: 15:29 Physician/Practitioner Notified:: Edwin Spoke With: Edwin - Notification Comment Comment: pt may be discharged home. Disposition - Disposition OB Disposition: Discharge to home Discharge Date: 12/16/17 Discharge Time: 15:48 I agree with the RN Medical Screening Exam: Yes Risk & Benefit of care provided described in d/c instruction: Yes Diagnosis: CLEFT LIP, MEDIAN
== END | disposition home or self-care (01) ==
LOC: FBPOP 14:47
PROVIDERS: ATTEND Obstetrics & Gynecology
DX: O35.2XX1 Maternal care for (suspected) hereditary disease in fetus, fetus 1 (principal); Z3A.34 34 weeks gestation of pregnancy
CPT/HCPCS: 59025; G0463; 99213

== ENCOUNTER → 2018-08-30 | Outpatient (CLI) | payer OTHER ==
--- NOTE | 2018-08-31 15:09 | MR ---
EXAMINATION TYPE: MR knee LT wo con DATE OF EXAM: 08/30/2018 COMPARISON: None HISTORY: Pain in left knee TECHNIQUE: Multiplanar, multisequence imaging of the left knee is performed without IV contrast. FINDINGS: MEDIAL MENISCUS: There is some increased signal within the posterior horn of the medial meniscus, no definite extension to the articular surface to suggest tear however LATERAL MENISCUS: Anterior and posterior horns are intact without tear. CRUCIATE LIGAMENTS: The anterior and posterior cruciate ligaments are intact and unremarkable. COLLATERAL LIGAMENTS: The medial collateral ligament and lateral collateral ligament complex are inta ct and unremarkable. EXTENSOR MECHANISM: Visualized quadriceps and patellar tendons are intact. EFFUSION: Minimal joint fluid present. POPLITEAL CYST: No popliteal/diaz cyst. TRICOMPARTMENT SPACES: Maintained CARTILAGE: Within normal limits. BONE MARROW SIGNAL: No focal abnormal marrow signal is appreciated. OTHER: No minimal subcutaneous edema changes are present.. IMPRESSION: Signal within the medial meniscus may be degenerative rather than represent tear.
== END | disposition home or self-care (01) ==
LOC: RADMRIMAIN 20:37
PROVIDERS: ATTEND Internal Medicine
DX: M25.562 Pain in left knee (principal)

== ENCOUNTER → 2019-06-01 | Outpatient (CLI) | payer OTHER ==
--- NOTE | 2019-06-01 08:18 | US ---
EXAMINATION TYPE: US pelvic complete DATE OF EXAM: 06/01/2019 COMPARISON: None CLINICAL HISTORY: 28-year-old female N92.0 Menorrhagia N94.6 Dysmenorrhea; C section x 1; pre endomet rial ablation; , D&C; menorrhagia since menses onset TECHNIQUE: Transabdominal sonographic images of the pelvis were acquired. Transvaginal sonographic images were medically necessary to better assess the following anatomy: Endometrium Date of LMP: approximately 2 weeks ago FINDINGS: EXAM MEASUREMENTS: Uterus: 9.8 x 5.5 x 4.9 cm Endometrial Stripe: 1.3 cm Right Ovary: 3.6 x 2.9 x 2.5 cm Left Ovary: 3.2 x 2.1 x 1.8 cm 1. Uterus: Anteverted; multiple Nabothian cysts in cervix. One of these are slightly more superiorly located towards the right near the region of the lower uterine segment measuring 1.5 cm. 2. Endometrium: thickness is wnl for approximately Day14 LMP 3. Right Ovary: multifollicular with largest = 2.5 x 1.9 x 1.9cm 4. Left Ovary: Follicular change. 5. Bilateral Adnexa: wnl 6. Posterior cul-de-sac: wnl IMPRESSION: 1. Multiple cervical nabothian cysts. One of these cystic structures is located more superiorly near the region of the lower uterine segment towards the right measuring 1.5 cm. This is also suspected to represent a cervical nabothian cyst. A fluid distended scar niche is considered less likely but can be reevaluated in 6-8 weeks to assess for any decompression. 2. Dominant follicle/functional cyst measuring 2.5 cm 18 the right ovary. 3. Endometrial stripe is thickened to the upper limits of normal 1.3 cm, should correspond to the sec retory phase.
== END ==
LOC: RADUSWWP 06:52
PROVIDERS: ATTEND Obstetrics & Gynecology
DX: N88.8 Other specified noninflammatory disorders of cervix uteri (principal); R93.89 Abnormal findings on diagnostic imaging of other specified body structures; N92.0 Excessive and frequent menstruation with regular cycle; N94.6 Dysmenorrhea, unspecified
CPT/HCPCS: 76830; 76856

== ENCOUNTER → 2019-06-15 | Outpatient (CLI) | payer OTHER ==
[2019-06-15 10:47] LABS: Basophils % (A) 1 %; Eosinophils # (A) 0.2 k/uL (0-0.7); Eosinophils % (A) 3 %; HCT 39.4 % (34.0-46.0); HGB 12.9 gm/dL (11.4-16.0); Lymphocytes # (A) 1.7 k/uL (1.0-4.8); Lymphocytes % (A) 28 %; MCH 29.2 pg (25.0-35.0); MCHC 32.8 g/dL (31.0-37.0); MCV 88.9 fL (80.0-100.0); Mean Platelet Volume 6.8; Monocytes # (A) 0.5 k/uL (0-1.0); Monocytes % (A) 9 %; Neutrophils # (A) 3.3 k/uL (1.3-7.7); Neutrophils % (A) 55 %; Platelet Count 340 k/uL (150-450); RBC 4.43 m/uL (3.80-5.40); RDW 13.3 % (11.5-15.5); WBC 6.1 k/uL (3.8-10.6)
== END ==
LOC: LABPAT 09:52
PROVIDERS: ATTEND Obstetrics & Gynecology
DX: Z01.812 Encounter for preprocedural laboratory examination (principal)
CPT/HCPCS: 85025

== ENCOUNTER 2019-06-19 06:09 | Day surgery (SDC) | payer OTHER ==
[2019-06-14 11:10] VITALS: BMI 40.7
--- NOTE | 2019-06-18 20:39 | P.HPOB ---
History of Present Illness H&P Date: 06/18/19 Chief Complaint: Family planning, menorrhagia with regular cycle This is a 28-year-old female 4 para 3 who presents for laparoscopic bilateral tubal ligation via fulguration along with dilation and curettage with hysteroscopy and NovaSure endometrial ablation for menorrhagia with regular cycle. Her menses are occurring monthly but despite control pills she is still bleeding very heavily for at least 2 days out of her cycle. This is also occurring on the third week of her packing instead of the fourth week of the pack. She would like definitive surgical treatment for this problem along with tubal ligation for family planning. Pelvic ultrasound showed a uterus measuring 9.8 x 5.5 x 4.9 cm with an endometrial stripe thickness of 1.3 cm. Her right ovary did have a cyst measuring 2.5 cm. Obstetrical history: . History of 2 vaginal deliveries 1 at full-term and another one at 36 weeks. She also had a emergency section at 37 weeks for abruption with her last child. She did have 1 miscarriage that did require D&C. Gynecologic history: No history of sexually transmitted diseases. Her has had a vasectomy but she would like to have a tubal ligation in addition. Social history: She is . She is a homemaker. Review of Systems Constitutional: Reports fatigue, Denies chills, Denies fever Eyes: bilateral blurred vision, denies pain Ears, nose, mouth and throat: Denies headache, Denies sore throat Cardiovascular: Denies chest pain, Denies shortness of breath Respiratory: Denies cough Gastrointestinal: Denies abdominal pain, Denies diarrhea, Denies nausea, Denies vomiting Genitourinary: Reports dysmenorrhea, Reports menorrhagia Menstruation: Reports menses 1-7 days, Reports period heavy Musculoskeletal: Denies myalgias Integumentary: Denies pruritus, Denies rash Neurological: Denies numbness, Denies weakness Psychiatric: Reports anxiety, Reports depression, Reports difficulty concentrating, Reports insomnia, Reports irritability Endocrine: Reports fatigue Past Medical History Past Medical History: No Reported History Additional Past Medical History / Comment(s): anemia, preclampsia with last History of Any Multi-Drug Resistant Organisms: None Reported Past Surgical History: Section, Orthopedic Surgery Additional Past Surgical History / Comment(s): D&C, fx rt arm and wrist-surgery with hardware, eye surgery for lasy eye age 8 Past Anesthesia/Blood Transfusion Reactions: Previous Problems w/ Anesthesia, Motion Sickness Additional Past Anesthesia/Blood Transfusion Reaction / Comment(s): "takes a long time to come out" Past Psychological History: Anxiety, Depression Smoking Status: Never smoker Past Alcohol Use History: None Reported Past Drug Use History: None Reported - Past Family History Mother Family Medical History: Cancer Additional Family Medical History / Comment(s): breast Father Family Medical History: Diabetes Mellitus Medications and Allergies Home Medications Medication Instructions Recorded Confirmed Type Acetaminophen [Tylenol Extra 500 mg PO DIRECTED PRN 06/14/19 06/14/19 History Strength] Ibuprofen [Motrin] 800 mg PO DIRECTED PRN 06/14/19 06/14/19 History Allergies Allergy/AdvReac Type Severity Reaction Status Date / Time nickel Allergy Rash/Hives Verified 06/14/19 11:01 monosodium glutamate [MSG] AdvReac CONGESTION Verified 06/14/19 11:01 morphine AdvReac LOW OXYGEN Verified 06/14/19 11:01 LEVELS tramadol AdvReac DIZZY Verified 06/14/19 11:01 Exam Osteopathic Statement: *. No significant issues noted on an osteopathic structural exam other than those noted in the History and Physical/Consult. HEENT: Within normal limits Heart: Regular rate and rhythm Lungs: Clear to auscultation bilaterally Abdomen: Soft, nontender Pelvic exam: Uterus is anteverted, nontender, with no adnexal masses or tenderness noted. Extremities: Negative Homans Assessment and Plan (1) Family planning Status: Acute Code(s): Z30.09 - ENCOUNTER FOR OT GENERAL CNSL AND ADVICE ON CONTRACEPTION SNOMED Code(s): 788693382 (2) Menorrhagia with regular cycle Status: Acute Code(s): N92.0 - EXCESSIVE AND FREQUENT MENSTRUATION WITH REGULAR CYCLE SNOMED Code(s): 054472713 Plan: Proceed with dilation and curettage with hysteroscopy and NovaSure endometrial ablation along with laparoscopic bilateral tubal ligation via fulguration. I have discussed the risks, benefits, and alternative therapies for the above- mentioned procedure and for both sedation/anesthesia as well as necessary blood products administration, if indicated, as they pertain to this patient. The patient has indicated her understanding and acceptance of the risks and procedures discussed.
[~2019-06-19 06:09] MED LIST: DEXAMETHASONE SOD PHOSPHATE 10 MG/ML 1 ML VIAL IV ONE; LACTATED RINGERS 1,000 ML IV SCH; MIDAZOLAM 2 MG/2 ML VIAL IV PRN; ONDANSETRON 4 MG/2 ML VIAL IVP ONE; Pre Op ABX Message 1 EACH MISC MISCELLANE ONE
[2019-06-19 06:40] VITALS: TEMP 97.2
[2019-06-19] MEDS ORDERED: SCOPOLAMINE 1.5MG/72HR PATCH TRANSDERM ONE (06:50)
[2019-06-19] MEDS ORDERED: LIDOCAINE 1% 20 ML VIAL (10MG/ML) FOR IV START INTRADERMA ONE (06:50)
[2019-06-19] MEDS ORDERED: MIDAZOLAM 2 MG/2 ML VIAL ONE (07:26)
[2019-06-19] MEDS ORDERED: fentaNYL (PF) 50 MCG/ML 2 ML AMP ONE (07:26)
[2019-06-19] MEDS ORDERED: LIDOCAINE 1% INJ 10MG/ML (20 ML MDV) ONE (07:26)
[2019-06-19] MEDS ORDERED: ONDANSETRON 4 MG/2 ML VIAL ONE (07:26)
[2019-06-19] MEDS ORDERED: KETOROLAC 30 MG/ML 1 ML VIAL ONE (07:26)
[2019-06-19] MEDS ORDERED: PROPOFOL 10 MG/ML 20 ML VIAL IV ONE (07:26)
[2019-06-19] MEDS ORDERED: SUCCINYLCHOLINE CHLORIDE VIAL 200 MG/10 ML VIAL IV ONE (07:26)
[2019-06-19] MEDS ORDERED: BUPIVACAINE (PF) 0.25% 30 ML VIAL SQ ONE ×2 (08:11→08:22)
[2019-06-19] MEDS ORDERED: BACITRACIN OINT 1 EACH PACKET TOPICAL ONE (08:29)
--- NOTE | 2019-06-19 08:30 | P.OP ---
Date of Procedure: 06/19/19 Preoperative Diagnosis: Menorrhagia with regular cycle Family planning Postoperative Diagnosis: Same Procedure(s) Performed: Dilation and curettage with hysteroscopy and NovaSure endometrial ablation Laparoscopic bilateral tubal ligation via fulguration Anesthesia: SCOOTER Surgeon: Clarita Mart Estimated Blood Loss (ml): 10 Pathology: other (Endometrial curettings) Condition: stable Disposition: same day Indications for Procedure: This is a 28-year-old female 4 para 3 who presents for laparoscopic bilateral tubal ligation via fulguration along with dilation and curettage with hysteroscopy and NovaSure endometrial ablation for menorrhagia with regular cycle. Her menses are occurring monthly but despite control pills she is still bleeding very heavily for at least 2 days out of her cycle. This is also occurring on the third week of her packing instead of the fourth week of the pack. She would like definitive surgical treatment for this problem along with tubal ligation for family planning. Pelvic ultrasound showed a uterus measuring 9.8 x 5.5 x 4.9 cm with an endometrial stripe thickness of 1.3 cm. Her right ovary did have a cyst measuring 2.5 cm. Operative Findings: Uterus is anteverted, sounded to 10 cm. Cervix is sounded to 3 cm. Upon hysteroscopy, a fairly dyssynchronous endometrial pattern is noted. Both tubal ostia are visualized. A moderate amount of endometrial curettings are obtained. Upon laparoscopy, uterus is normal contour. Right ovary does appear to have a small simple cyst. There is an omental adhesion to the anterior abdominal wall just above the uterus in the midline. Appendix is visualized and appears normal. Liver edge appears normal. Description of Procedure: The patient is taken to the operating room. She is placed in the dorsal lithotomy position after general anesthesia was given. She is prepped and draped in the normal sterile fashion. Bladder is drained with a catheter and then removed. Pelvic exam is performed under anesthesia. Uterus is found to be anteverted with no adnexal masses. She is placed in slight Trendelenburg position. A right angle retractor is used to visualize the cervix. The anterior lip of the cervix is grasped with a single-tooth tenaculum. Cervix is sounded to 3 cm. Uterus is sounded to 10 cm. Cervix is gently dilated with Sánchez dilators until a hysteroscope could be passed. Hysteroscopy is performed using normal saline. The above noted findings are noted. Next a polyp forceps is introduced. A minimal amount of tissue was obtained. Next medium-sized size sharp curette was placed. A moderate amount of endometrial curettings were obtained. Next NovaSure array was inserted into the endometrial cavity. Length was set at 6.5 cm and width was determined to be 2.5 cm. Next cavity assessment was completed and passed on the first try. Next NovaSure array was fired at 89 W for 71 seconds. Next the array was removed, inspected and then discarded. Next the hysteroscope was reinserted. Uniform charring was noted. Pictures were taken. Hysteroscope was removed. Kroner uterine manipulator is inserted through the cervix and the balloon is inflated. Single-tooth tenaculum was removed from the anterior lip of the cervix. Minimal bleeding was noted. All other instruments removed from the vagina. Attention is then turned to the abdomen after gloves are changed. The infraumbilical fold was grasped in transverse fashion with 2 Allis clamps. A small transverse incision was made with a scalpel. A hemostat was used to carry the incision down to the underlying layer of fascia. A towel clip was placed above the umbilicus for retraction. A 11 mm disposable bladeless trocar was then inserted into the peritoneal cavity under direct visualization. The towel clip did slip off one time and it causes slight bruise on the skin. Once inside, pneumoperitoneum was achieved with CO2 gas. The insert was removed and the camera was placed. Intraperitoneal placement was confirmed. No bleeding was noted. The above-noted findings were made. Next the patient was placed in Trendelenburg position. A small stab incision was made suprapubically and a 5 mm disposable bladeless trocar was inserted into the peritoneal cavity under direct visualization. Once inside pelvic contents were inspected. Next a bipolar Kleppinger instrument was placed through the inferior trocar and the midportion of each tube was brought away from other structures and completely fulgurated on approximate 2-3 cm segment of each tube. Excellent hemostasis was noted. Pictures were taken. Pneumoperitoneum was released after the inferior trocar was removed under direct visualization. The upper trocar was then removed. The fascial incision was closed with 0 Vicryl suture in interrupted [id number] stitch. The skin incisions were then closed with 4-0 Vicryl suture in a subcuticular fashion. Incision sites were then injected with quarter percent Marcaine. Approximately 9 mL were used. Next the kroner uterine manipulator was removed. Minimal bleeding was noted. All sponge and needle counts are correct. The patient is then taken to recovery room in stable condition.
[2019-06-19] MEDS: HYDROmorphone 0.5 MG/0.5 ML SYRINGE IVP PRN ×2 (08:35→08:40)
[2019-06-19] MEDS ORDERED: LACTATED RINGERS 1,000 ML IV ONE ×2 (08:45)
[2019-06-19] MEDS ORDERED: MEPERIDINE 50 MG/ML SYRINGE IVP ONE (08:55)
[2019-06-19 10:27] VITALS: BP 122/70; PULSE 69; RESP 18
== END 2019-06-19 10:29 | disposition home or self-care (01) ==
LOC: OR 06:09
PROVIDERS: ATTEND Obstetrics & Gynecology
DX: Z30.2 Encounter for sterilization (principal); N92.0 Excessive and frequent menstruation with regular cycle; K66.0 Peritoneal adhesions (postprocedural) (postinfection); E66.01 Morbid (severe) obesity due to excess calories; Z68.41 Body mass index [BMI] 40.0-44.9, adult; Z88.5 Allergy status to narcotic agent; Z91.048 Other nonmedicinal substance allergy status
CPT/HCPCS: 81025; 88305; 58563; 58670; J2250; J0330; J1100; J2175; J2405; J2001; J3010; J1885; J2704; J1170

== ENCOUNTER 2019-10-16 11:29 | Inpatient (IN) | payer MEDICAID, OTHER ==
--- NOTE | 2019-10-16 11:48 | ED ---
General Adult HPI - General Chief complaint: Psychiatric Symptoms Stated complaint: OVERDOSE Time Seen by Provider: 10/16/19 11:32 Source: patient, EMS, RN notes reviewed Mode of arrival: EMS Limitations: no limitations - History of Present Illness Initial comments: Patient is a pleasant 28-year-old female presenting to the emergency department with complaints of depression. Patient states she has a lot of stressors. Patient states the past hour or 2 she took approximately 2 mg of Xanax. Patient admits this was to harm herself. Patient admits to feeling drowsy at this time and states she has not slept in over 24 hours. Patient denies homicidal thoughts. No hallucinations. No physical complaints. No alcohol or street drug use. Patient has previously attempted cutting, last was 1 or 2 weeks ago. - Related Data Home Medications Medication Instructions Recorded Confirmed ALPRAZolam [Xanax] 0.25 mg PO HS PRN 10/16/19 10/16/19 buPROPion SR [Wellbutrin Sr] 150 mg PO DAILY 10/16/19 10/16/19 Allergies Allergy/AdvReac Type Severity Reaction Status Date / Time nickel Allergy Rash/Hives Verified 10/16/19 13:05 monosodium glutamate [MSG] AdvReac CONGESTION Verified 10/16/19 13:05 morphine AdvReac LOW OXYGEN Verified 10/16/19 13:05 LEVELS tramadol AdvReac DIZZY Verified 10/16/19 13:05 Review of Systems ROS Statement: Those systems with pertinent positive or pertinent negative responses have been documented in the HPI. ROS Other: All systems not noted in ROS Statement are negative. Constitutional: Denies: fever Eyes: Denies: eye pain ENT: Denies: ear pain Respiratory: Denies: cough Cardiovascular: Denies: chest pain Endocrine: Denies: fatigue Gastrointestinal: Denies: abdominal pain Genitourinary: Denies: dysuria Musculoskeletal: Denies: back pain Skin: Denies: rash Neurological: Denies: weakness Psychiatric: Reports: depression Past Medical History Past Medical History: No Reported History Additional Past Medical History / Comment(s): anemia, scoliosis History of Any Multi-Drug Resistant Organisms: None Reported Past Surgical History: Orthopedic Surgery Additional Past Surgical History / Comment(s): D&C Past Anesthesia/Blood Transfusion Reactions: No Reported Reaction Past Psychological History: No Psychological Hx Reported Smoking Status: Never smoker Past Alcohol Use History: None Reported Past Drug Use History: None Reported - Past Family History Mother Family Medical History: Cancer Father Family Medical History: Diabetes Mellitus General Exam Limitations: no limitations General appearance: alert, in no apparent distress Head exam: Present: normocephalic Eye exam: Present: normal appearance, PERRL ENT exam: Present: normal oropharynx Neck exam: Present: normal inspection Respiratory exam: Present: normal lung sounds bilaterally Cardiovascular Exam: Present: regular rate, normal rhythm GI/Abdominal exam: Present: soft. Absent: tenderness Extremities exam: Present: normal inspection Neurological exam: Present: alert Psychiatric exam: Present: depressed Skin exam: Present: normal color, abrasion (Mild Healing abrasion left forearm) Course Vital Signs 10/16/19 10/16/19 11:31 12:46 Temperature 98.1 F Pulse Rate 83 Respiratory 16 17 Rate Blood Pressure 119/75 O2 Sat by Pulse 99 Oximetry EKG Findings - EKG Comments: EKG Findings:: Normal sinus rhythm 78. NV 1:30. QRS 80. QT 398. QTC 453. Normal axis. Normal QRS. No acute ST change. Medical Decision Making - Medical Decision Making Patient seen by mental health services, who will admit. - Lab Data Result diagrams: 10/16/19 11:52 10/16/19 11:52 Lab Results 10/16/19 10/16/19 10/16/19 Range/Units 11:52 11:52 11:52 WBC 6.0 (3.8-10.6) k/uL RBC 4.51 (3.80-5.40) m/uL Hgb 13.2 (11.4-16.0) gm/dL Hct 40.9 (34.0-46.0) % MCV 90.8 (80.0-100.0) fL MCH 29.3 (25.0-35.0) pg MCHC 32.3 (31.0-37.0) g/dL RDW 12.8 (11.5-15.5) % Plt Count 298 (150-450) k/uL Neutrophils % 56 % Lymphocytes % 28 % Monocytes % 9 % Eosinophils % 2 % Basophils % 2 % Neutrophils # 3.4 (1.3-7.7) k/uL Lymphocytes # 1.7 (1.0-4.8) k/uL Monocytes # 0.6 (0-1.0) k/uL Eosinophils # 0.1 (0-0.7) k/uL Basophils # 0.1 (0-0.2) k/uL PT (9.0-12.0) sec INR (<1.2) Sodium 138 (137-145) mmol/L Potassium 4.3 (3.5-5.1) mmol/L Chloride 109 H (98-107) mmol/L Carbon Dioxide 24 (22-30) mmol/L Anion Gap 5 mmol/L BUN 10 (7-17) mg/dL Creatinine 0.82 (0.52-1.04) mg/dL Est GFR (CKD-EPI)AfAm >90 (>60 ml/min/1.73 sqM) Est GFR (CKD-EPI)NonAf >90 (>60 ml/min/1.73 sqM) Glucose 93 (74-99) mg/dL Calcium 8.6 (8.4-10.2) mg/dL Total Bilirubin 0.5 (0.2-1.3) mg/dL AST 22 (14-36) U/L ALT 20 (9-52) U/L Alkaline Phosphatase 60 (38-126) U/L Total Protein 6.1 L (6.3-8.2) g/dL Albumin 3.2 L (3.5-5.0) g/dL Urine HCG, Qual (Not Detectd) Salicylates <1.0 mg/dL Urine Opiates Screen Not Detected (NotDetected) Ur Oxycodone Screen Not Detected (NotDetected) Urine Methadone Screen Not Detected (NotDetected) Ur Propoxyphene Screen Not Detected (NotDetected) Acetaminophen <10.0 ug/mL Ur Barbiturates Screen Not Detected (NotDetected) U Tricyclic Antidepress Not Detected (NotDetected) Ur Phencyclidine Scrn Not Detected (NotDetected) Ur Amphetamines Screen Not Detected (NotDetected) U Methamphetamines Scrn Not Detected (NotDetected) U Benzodiazepines Scrn Detected H (NotDetected) Urine Cocaine Screen Not Detected (NotDetected) U Marijuana (THC) Screen Not Detected (NotDetected) Serum Alcohol <10 mg/dL 10/16/19 10/16/19 Range/Units 11:52 11:52 WBC (3.8-10.6) k/uL RBC (3.80-5.40) m/uL Hgb (11.4-16.0) gm/dL Hct (34.0-46.0) % MCV (80.0-100.0) fL MCH (25.0-35.0) pg MCHC (31.0-37.0) g/dL RDW (11.5-15.5) % Plt Count (150-450) k/uL Neutrophils % % Lymphocytes % % Monocytes % % Eosinophils % % Basophils % % Neutrophils # (1.3-7.7) k/uL Lymphocytes # (1.0-4.8) k/uL Monocytes # (0-1.0) k/uL Eosinophils # (0-0.7) k/uL Basophils # (0-0.2) k/uL PT 10.1 (9.0-12.0) sec INR 0.9 (<1.2) Sodium (137-145) mmol/L Potassium (3.5-5.1) mmol/L Chloride (98-107) mmol/L Carbon Dioxide (22-30) mmol/L Anion Gap mmol/L BUN (7-17) mg/dL Creatinine (0.52-1.04) mg/dL Est GFR (CKD-EPI)AfAm (>60 ml/min/1.73 sqM) Est GFR (CKD-EPI)NonAf (>60 ml/min/1.73 sqM) Glucose (74-99) mg/dL Calcium (8.4-10.2) mg/dL Total Bilirubin (0.2-1.3) mg/dL AST (14-36) U/L ALT (9-52) U/L Alkaline Phosphatase (38-126) U/L Total Protein (6.3-8.2) g/dL Albumin (3.5-5.0) g/dL Urine HCG, Qual Not Detected (Not Detectd) Salicylates mg/dL Urine Opiates Screen (NotDetected) Ur Oxycodone Screen (NotDetected) Urine Methadone Screen (NotDetected) Ur Propoxyphene Screen (NotDetected) Acetaminophen ug/mL Ur Barbiturates Screen (NotDetected) U Tricyclic Antidepress (NotDetected) Ur Phencyclidine Scrn (NotDetected) Ur Amphetamines Screen (NotDetected) U Methamphetamines Scrn (NotDetected) U Benzodiazepines Scrn (NotDetected) Urine Cocaine Screen (NotDetected) U Marijuana (THC) Screen (NotDetected) Serum Alcohol mg/dL Disposition Clinical Impression: Depression, Suicidal ideation Disposition: TRANSFER TO PSYCH HOSP/UNIT Is patient prescribed a controlled substance at d/c from ED?: No Referrals: Deyanira Gutierrez MD [Primary Care Provider] - 1-2 days Decision Time: 16:06
[2019-10-16 12:18] LABS: Basophils # (A) 0.1 k/uL (0-0.2); Basophils % (A) 2 %; Eosinophils # (A) 0.1 k/uL (0-0.7); Eosinophils % (A) 2 %; HCT 40.9 % (34.0-46.0); HGB 13.2 gm/dL (11.4-16.0); Lymphocytes # (A) 1.7 k/uL (1.0-4.8); Lymphocytes % (A) 28 %; MCH 29.3 pg (25.0-35.0); MCHC 32.3 g/dL (31.0-37.0); MCV 90.8 fL (80.0-100.0); Mean Platelet Volume 6.8; Monocytes # (A) 0.6 k/uL (0-1.0); Monocytes % (A) 9 %; Neutrophils # (A) 3.4 k/uL (1.3-7.7); Neutrophils % (A) 56 %; Platelet Count 298 k/uL (150-450); RBC 4.51 m/uL (3.80-5.40); RDW 12.8 % (11.5-15.5)
[2019-10-16 12:26] LABS: INR 0.9 (<1.2); Prothrombin Time 10.1 sec (9.0-12.0)
[2019-10-16 12:27] LABS: Amphetamine Screen,Urine Not Detected (NotDetected); Barbiturate Screen,Urine Not Detected (NotDetected); Benzodiazepines Screen,Urine Detected (NotDetected); Cocaine Screen,Urine Not Detected (NotDetected); Methadone Screen, Urine Not Detected (NotDetected); Opiate Screen,Urine Not Detected (NotDetected); Oxycodone Screen, Urine Not Detected (NotDetected); Phencyclidine Screen,Urine Not Detected (NotDetected); Tricyclic Antidepressant,Urine Not Detected (NotDetected); Urn Cannabinoid Scrn Not Detected (NotDetected)
[2019-10-16 12:29] LABS: ALT 20 U/L (9-52); AST 22 U/L (14-36); Acetaminophen <10.0 ug/mL; African American GFR (CKD) >90 (>60 ml/min/1.73 sqM); Albumin 3.2 g/dL (3.5-5.0); Alcohol <10 mg/dL; Alkaline Phosphatase 60 U/L (38-126); Anion Gap 5 mmol/L; Blood Urea Nitrogen 10 mg/dL (7-17); Calcium 8.6 mg/dL (8.4-10.2); Carbon Dioxide 24 mmol/L (22-30); Chloride 109 mmol/L (98-107); Glucose 93 mg/dL (74-99); Non-African American GFR(CKD) >90 (>60 ml/min/1.73 sqM); Salicylate <1.0 mg/dL; Sodium 138 mmol/L (137-145); Total Bilirubin 0.5 mg/dL (0.2-1.3); Total Protein 6.1 g/dL (6.3-8.2)
[2019-10-16 12:32] LABS: Potassium 4.3 mmol/L (3.5-5.1)
[2019-10-16] MEDS ORDERED: MAG HYDROX/AL HYDROX/SIMETH 30 ML CUP PO PRN (17:35)
[2019-10-16] MEDS ORDERED: MAGNESIUM HYDROXIDE 2,400 MG/10 ML CUP PO PRN (17:35)
[2019-10-16] MEDS ORDERED: ACETAMINOPHEN TAB 325 MG TAB PO PRN (17:35)
[2019-10-16 18:50] VITALS: BMI 41.1
[2019-10-16] MEDS ORDERED: INFLUENZA VACCINE (6 MOS+) 60 MCG/0.5 ML SYRINGE IM ONE (18:52)
[2019-10-16] MEDS ORDERED: MELATONIN 5 MG TABLET PO PRN (21:28)
[2019-10-17 08:07] LABS: ALT 21 U/L (9-52); AST 25 U/L (14-36); African American GFR (CKD) >90 (>60 ml/min/1.73 sqM); Albumin 3.1 g/dL (3.5-5.0); Alkaline Phosphatase 48 U/L (38-126); Anion Gap 6 mmol/L; Blood Urea Nitrogen 12 mg/dL (7-17); Calcium 8.5 mg/dL (8.4-10.2); Carbon Dioxide 24 mmol/L (22-30); Chloride 109 mmol/L (98-107); Cholesterol 167 mg/dL (<200); Glucose 94 mg/dL (74-99); HDL Cholesterol 41 mg/dL (40-60); LDL Cholesterol,Calculated 104 mg/dL (0-99); Non-African American GFR(CKD) 87 (>60 ml/min/1.73 sqM); Sodium 139 mmol/L (137-145); Total Bilirubin 0.6 mg/dL (0.2-1.3); Triglycerides 110 mg/dL (<150)
[2019-10-17 08:09] LABS: Potassium 4.7 mmol/L (3.5-5.1)
[2019-10-17 08:10] LABS: Basophils % (A) 1 %; Eosinophils # (A) 0.2 k/uL (0-0.7); Eosinophils % (A) 4 %; HCT 39.3 % (34.0-46.0); HGB 13.2 gm/dL (11.4-16.0); Lymphocytes # (A) 1.9 k/uL (1.0-4.8); Lymphocytes % (A) 35 %; MCH 31.2 pg (25.0-35.0); MCHC 33.6 g/dL (31.0-37.0); MCV 92.8 fL (80.0-100.0); Mean Platelet Volume 6.1; Monocytes # (A) 0.5 k/uL (0-1.0); Monocytes % (A) 8 %; Neutrophils # (A) 2.7 k/uL (1.3-7.7); Neutrophils % (A) 49 %; Platelet Count 304 k/uL (150-450); RBC 4.23 m/uL (3.80-5.40); RDW 12.8 % (11.5-15.5); WBC 5.5 k/uL (3.8-10.6)
[2019-10-17] MEDS ORDERED: INFLUENZA VACCINE (6 MOS+) 60 MCG/0.5 ML SYRINGE IM ONE (09:00)
[2019-10-17] MEDS ORDERED: buPROPion SR 150 MG TABLET.ER PO SCH (09:00)
[2019-10-17 12:49] LABS: Hemoglobin A1C 5.3 % (4.0-6.0)
--- NOTE | 2019-10-17 14:35 | P.HP ---
Psychiatric H&P - . H&P Date: 10/17/19 History & Physical: Allergies Allergy/AdvReac Type Severity Reaction Status Date / Time nickel Allergy Rash/Hives Verified 10/16/19 18:37 monosodium glutamate MSG AdvReac CONGESTION Verified 10/16/19 18:37 morphine AdvReac LOW OXYGEN Verified 10/16/19 18:37 LEVELS tramadol AdvReac DIZZY Verified 10/16/19 18:37 Vital Signs Temp 97.8 F 10/17/19 06:08 Pulse 69 10/17/19 06:08 Resp 15 10/17/19 06:08 BP 103/64 10/17/19 06:08 Pulse Ox 99 10/16/19 11:31 Intake & Output 10/16/19 10/17/19 10/17/19 18:59 06:59 18:59 Weight 104.326 kg Laboratory Last Values WBC 5.5 k/uL (3.8-10.6) 10/17/19 07:22 RBC 4.23 m/uL (3.80-5.40) 10/17/19 07:22 Hgb 13.2 gm/dL (11.4-16.0) 10/17/19 07:22 Hct 39.3 % (34.0-46.0) 10/17/19 07:22 MCV 92.8 fL (80.0-100.0) 10/17/19 07:22 MCH 31.2 pg (25.0-35.0) 10/17/19 07:22 MCHC 33.6 g/dL (31.0-37.0) 10/17/19 07:22 RDW 12.8 % (11.5-15.5) 10/17/19 07:22 Plt Count 304 k/uL (150-450) 10/17/19 07:22 Neutrophils % 49 % 10/17/19 07:22 Lymphocytes % 35 % 10/17/19 07:22 Monocytes % 8 % 10/17/19 07:22 Eosinophils % 4 % 10/17/19 07:22 Basophils % 1 % 10/17/19 07:22 Neutrophils # 2.7 k/uL (1.3-7.7) 10/17/19 07:22 Lymphocytes # 1.9 k/uL (1.0-4.8) 10/17/19 07:22 Monocytes # 0.5 k/uL (0-1.0) 10/17/19 07:22 Eosinophils # 0.2 k/uL (0-0.7) 10/17/19 07:22 Basophils # 0.0 k/uL (0-0.2) 10/17/19 07:22 PT 10.1 sec (9.0-12.0) 10/16/19 11:52 INR 0.9 (<1.2) 10/16/19 11:52 Sodium 139 mmol/L (137-145) 10/17/19 07:22 Potassium 4.7 mmol/L (3.5-5.1) 10/17/19 07:22 Chloride 109 mmol/L (98-107) H 10/17/19 07:22 Carbon Dioxide 24 mmol/L (22-30) 10/17/19 07:22 Anion Gap 6 mmol/L 10/17/19 07:22 BUN 12 mg/dL (7-17) 10/17/19 07:22 Creatinine 0.89 mg/dL (0.52-1.04) 10/17/19 07:22 Est GFR (CKD-EPI)AfAm >90 (>60 ml/min/1.73 sqM) 10/17/19 07:22 Est GFR (CKD-EPI)NonAf 87 (>60 ml/min/1.73 sqM) 10/17/19 07:22 Glucose 94 mg/dL (74-99) 10/17/19 07:[address] Glu mg/dL 105 10/17/19 07:22 Hemoglobin A1c 5.3 % (4.0-6.0) 10/17/19 07:22 Calcium 8.5 mg/dL (8.4-10.2) 10/17/19 07:22 Total Bilirubin 0.6 mg/dL (0.2-1.3) 10/17/19 07:22 AST 25 U/L (14-36) 10/17/19 07:22 ALT 21 U/L (9-52) 10/17/19 07:22 Alkaline Phosphatase 48 U/L (38-126) 10/17/19 07:22 Total Protein 6.0 g/dL (6.3-8.2) L 10/17/19 07:22 Albumin 3.1 g/dL (3.5-5.0) L 10/17/19 07:22 Triglycerides 110 mg/dL (<150) 10/17/19 07:22 Cholesterol 167 mg/dL (<200) 10/17/19 07:22 LDL Cholesterol, Calc 104 mg/dL (0-99) H 10/17/19 07:22 HDL Cholesterol 41 mg/dL (40-60) 10/17/19 07:22 TSH 0.483 mIU/L (0.465-4.680) 10/17/19 07:22 Urine HCG, Qual Not Detected (Not Detectd) 10/16/19 11:52 Salicylates <1.0 mg/dL 10/16/19 11:52 Urine Opiates Screen Not Detected (NotDetected) 10/16/19 11:52 Ur Oxycodone Screen Not Detected (NotDetected) 10/16/19 11:52 Urine Methadone Screen Not Detected (NotDetected) 10/16/19 11:52 Ur Propoxyphene Screen Not Detected (NotDetected) 10/16/19 11:52 Acetaminophen <10.0 ug/mL 10/16/19 11:52 Ur Barbiturates Screen Not Detected (NotDetected) 10/16/19 11:52 U Tricyclic Antidepress Not Detected (NotDetected) 10/16/19 11:52 Ur Phencyclidine Scrn Not Detected (NotDetected) 10/16/19 11:52 Ur Amphetamines Screen Not Detected (NotDetected) 10/16/19 11:52 U Methamphetamines Scrn Not Detected (NotDetected) 10/16/19 11:52 U Benzodiazepines Scrn Detected (NotDetected) H 10/16/19 11:52 Urine Cocaine Screen Not Detected (NotDetected) 10/16/19 11:52 U Marijuana (THC) Screen Not Detected (NotDetected) 10/16/19 11:52 Serum Alcohol <10 mg/dL 10/16/19 11:52 10/17/19 14:27 IDENTIFYING DATA: Patient is a 28-year-old female with a history of depression and anxiety currently lives in a house with her and 3 children and is 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 Patient was directable today upon evaluation over. Be anxious and tearful. Patient states that she has been dealing with several stressors in her life including her stepfather passing away from pancreatic cancer in December of this year, her best friend committed suicide earlier this year, her mom attempting suicide by overdosing and also having several fights with her . She claims that she has been not coping well with all of these stressors including that "it's eating me up inside". Patient claims that she has high anxiety and has been avoiding leaving the house. She states that she has had tearful episodes and has been compliant with her medications Xanax and Wellbutrin however finding it not helpful. She states that yesterday she got into a fight with her and claims that she had no sleep and was feeling anxious and overdosed on Xanax and claimed that she wanted to "leave the world" and techs that her could buy. At that time her came back home and called the police as patient was passed out on her bed. Patient was tearful about it when describing the episode and states that "I regretted it immediately" and described wanting to live for her children. She claims that she has been sleeping approximately 2 hours a night has poor concentration and guilt and poor appetite. Patient denies any suicidal or homicidal ideations intent or plan. At this time patient denies any auditory or visual hallucinations. Patient denies any flight of ideas racing thoughts and increased in goal directed behavior. Patient denies using any recreational drugs at this time denies any cigarettes or alcohol marijuana use. PAST PSYCHIATRIC HISTORY: Patient states that she is currently seeing a [facility] however denies seeing a outpatient psychiatrist. She claims that her primary care provider is prescribing her Xanax and Wellbutrin for the past few months. She denies any previous inpatient psychiatric admissions. She claims that she has a history of cutting behavior on her arms however denied any suicide intent. PMH: Anemia and scoliosis ALLERGIES: as per EMR CHEMICAL DEPENDENCY HISTORY: Denies FAMILY PSYCHIATRIC/SUBSTANCE USE HISTORY: Claims her father has schizophrenia SOCIAL HISTORY: She states that she was born and raised in [facility] and claims to have completed high school. 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 Patient is a [id number] mother with 3 children and is currently unsupported by her . MENTAL STATUS EXAM: General Appearance: Patient appears to be stated age is alert, directable and cooperative. Patient is tearful at times. Poor hygiene and grooming. Behavior: Patient is calmly seated without any agitated behavior. Tearful at times. Speech: Patient's speech is fluent and nonpressured. Soft tone Mood/Affect: Patient reports their mood is depressed and anxious, affect is congruent Suicidality/Homicidality: Patient denies having any suicidal or homicidal ideation intent or plan. Perceptions: Patient denies any auditory or visual hallucinations. Though content/process: There is no evidence of any delusional thought content and thought process is linear and goal-directed. Memory and concentration: AOX3, grossly intact for the purposes of this session. Can spell "WORLD" backwards Judgment and insight: poor/impulsive STRENGTHS/WEAKNESSES: strength is that patient has good support at home, weaknesses that patient has poor coping skills. INTELLECT: average IMPRESSIONS: Major depressive disorder, severe without psychotic features Anxiety disorder unspecified PLAN: -Patient is admitted under voluntary status to [facility]HU for stabilization of psychiatric symptoms and safety. Patient signed adult voluntary form and medication consent and is placed in patient's chart. -Medications : Will start patient on Zoloft 50 mg daily for mood/anxiety. Trazodone 25 mg daily at bedtime for insomnia/mood. Start BuSpar 10 mg twice a day for anxiety. Melatonin when necessary for sleep. -Patient was informed of the risks, benefits and side effects of the medication and patient verbally consented to taking the medications. Patient signed med consent form and was placed in chart. -NRT - not needed as patient does not smoke. -SW on board for discharge planning 10/17/19 14:35
[2019-10-17] MEDS: SERTRALINE 50 MG TAB PO SCH (14:52)
[2019-10-17] MEDS: busPIRone HCl 10 MG TAB PO SCH ×2 (14:52→21:07)
--- NOTE | 2019-10-17 18:34 | P.CONS ---
History of Present Illness - History of Present Illness this is a 28 yo F with no significant past medical history who presents to the mental health unit for signs and symptoms of depression, medcal consult was requested for non specific medical management , pt denies physical complaints to me, no chest pain, no dyspnea, no change in urine or bowel habit , no nausea or vomiting , no abd pain , she is tolerating diet well . no fever. vitals are stable, labs reviewed and showing unremarkable CBC and BMP , TSH 0.48 (WNL), cholesterol not elevated at 167 , LDL mildly elevated at 104. urine preg test is negative , i offered serum preg test however pt refused , risks benefits and alterative are explained Review of Systems CONSTITUTIONAL: No fever, no malaise, no fatigue. HEENT: No recent visual problems or hearing problems. Denied any sore throat. CARDIOVASCULAR: No orthopnea, PND, no palpitations, no syncope. PULMONARY: No shortness of breath, no cough, no hemoptysis. GASTROINTESTINAL: No diarrhea, no nausea, no vomiting, no abdominal pain. Normoactive bowel sounds. NEUROLOGICAL: No headaches, no weakness, no numbness. HEMATOLOGICAL: Denies any bleeding or petechiae. GENITOURINARY: Denies any burning micturition, frequency, or urgency. MUSCULOSKELETAL/RHEUMATOLOGICAL: Denies any joint pain, swelling, or any muscle pain. ENDOCRINE: Denies any polyuria or polydipsia. Past Medical History Past Medical History: No Reported History Additional Past Medical History / Comment(s): anemia, scoliosis History of Any Multi-Drug Resistant Organisms: None Reported Past Surgical History: Orthopedic Surgery Additional Past Surgical History / Comment(s): D&C Past Anesthesia/Blood Transfusion Reactions: No Reported Reaction Past Psychological History: No Psychological Hx Reported Smoking Status: Never smoker Past Alcohol Use History: None Reported Past Drug Use History: None Reported - Past Family History Mother Family Medical History: Cancer Father Family Medical History: Diabetes Mellitus Medications and Allergies Home Medications Medication Instructions Recorded Confirmed Type ALPRAZolam [Xanax] 0.25 mg PO HS PRN 10/16/19 10/16/19 History buPROPion SR [Wellbutrin Sr] 150 mg PO DAILY 10/16/19 10/16/19 History Allergies Allergy/AdvReac Type Severity Reaction Status Date / Time nickel Allergy Rash/Hives Verified 11/19/19 18:37 monosodium glutamate [MSG] AdvReac CONGESTION Verified 10/16/19 18:37 morphine AdvReac LOW OXYGEN Verified 10/16/19 18:37 LEVELS tramadol AdvReac DIZZY Verified 10/16/19 18:37 Physical Exam Vitals: Vital Signs Temp Pulse Pulse Resp BP 10/17/19 06:08 97.8 F 69 15 103/64 10/16/19 18:40 97.4 F L 83 20 GENERAL: The patient is alert and oriented x3, not in any acute distress. obese HEENT: Pupils are round and equally reacting to light. EOMI. No scleral icterus. No conjunctival pallor. Normocephalic, atraumatic. No pharyngeal erythema. No thyromegaly. CARDIOVASCULAR: S1 and S2 present. No murmurs, rubs, or gallops. PULMONARY: Chest is clear to auscultation, no wheezing or crackles. ABDOMEN: Soft, nontender, nondistended, normoactive bowel sounds. No palpable organomegaly. MUSCULOSKELETAL: No joint swelling or deformity. EXTREMITIES: No cyanosis, clubbing, or pedal edema. NEUROLOGICAL: Gross neurological examination did not reveal any focal deficits. SKIN: No rashes. Results CBC & Chem 7: 10/17/19 07:22 10/17/19 07:22 Labs: Abnormal Lab Results - Last 24 Hours (Table) 10/17/19 Range/Units 07:22 Chloride 109 H (98-107) mmol/L Total Protein 6.0 L (6.3-8.2) g/dL Albumin 3.1 L (3.5-5.0) g/dL LDL Cholesterol, Calc 104 H (0-99) mg/dL Assessment and Plan Assessment: -obesity , recommend increased physical activity and avoiding fatty food -depression and other psych illnesses , management as per primary psych team -mildly elevated LDL, diet control and follow up with her pcp upon discharge -dvt px: early mobilization, low risk -gi px: no need we recommend pt to f/u with her pcp in one week post discharge , pt is instructed with the same thank you for consulting us \
[2019-10-17] MEDS: traZODone HCL 50 MG TAB PO SCH (21:07)
[2019-10-18 06:35] VITALS: TEMP 97.7
[2019-10-18] MEDS: SERTRALINE 50 MG TAB PO SCH (08:25)
[2019-10-18] MEDS: busPIRone HCl 10 MG TAB PO SCH ×2 (08:25→21:48)
--- NOTE | 2019-10-18 12:58 | P.PN ---
Progress Note - Text Progress Note Date: 10/18/19 Interval History: Patient was seeing laying down on her bed in her room and was directable and a greeable to speak to va underwriter in the office. Patient claims that she had a "much better" night last night and states that she has not slept that well for months. She states that the trazodone helped her maintain her sleep and she did not awake throughout the night. She also claims that her anxiety has improved fairly along with her depression and states that the Zoloft "is really helping". Patient claims that she did have some mild dizziness yesterday however does not know what to attribute that to. She states that she has been going to the groups and trying to participate as best as she can. Patient spoke about more of the details about her overdose attempt and states that her friend who committed suicide "would not be happy with me". Patient also expressed regret towards her actions. At this time patient denies any suicidal or homical ideations, intent or plan. Patient denies any auditory, visual hallucinations and denies any paranoia or delusions. Patient has been compliant with meds. Mental Status Exam: General Appearance: Patient appears to be stated age is alert, directable and cooperative. Improving hygiene and grooming. Behavior: Patient is calmly seated without any agitated behavior. More directable today. Speech: Patient's speech is fluent and nonpressured. Overinclusive of details at times. Mood/Affect: Patient reports their mood/anxiety is improving, affect is congruent Suicidality/Homicidality: Patient denies having any suicidal or homicidal ideation intent or plan. Perceptions: Patient denies any auditory or visual hallucinations. Though content/process: There is no evidence of any delusional thought content and thought process is linear and goal-directed. Focused on discharge. Memory and concentration: AOX3, grossly intact for the purposes of this session. Judgment and insight: Fair, improving mildly. Assessment Major depressive disorder, severe without psychotic features Anxiety disorder unspecified Plan: -Patient continues to meet criteria for inpatient psychiatric admission for symptom stabilization and safety. Patient has signed adult voluntary form and medication consent and was placed in patient's chart. -Medications: We will increase Zoloft 100 mg daily for mood/anxiety. We'll continue trazodone 25 mg nightly for insomnia/mood. Continue with BuSpar 10 mg twice a day for anxiety. Melatonin when necessary for sleep -NRT - not needed as patient does not smoke. -SW on board for discharge planning. We'll ask mental health social worker to reach out to patient's about any concerns and likely setup discharge for tomorrow b ack home.
[2019-10-18] MEDS: traZODone HCL 50 MG TAB PO SCH (21:48)
[2019-10-19 06:42] VITALS: BP 115/62; PULSE 74; RESP 15
[2019-10-19] MEDS: busPIRone HCl 10 MG TAB PO SCH (08:42)
[2019-10-19] MEDS ORDERED: SERTRALINE 100 MG TAB PO SCH (09:00)
--- NOTE | 2019-10-19 09:27 | P.DS ---
Providers Date of admission: 10/16/19 16:59 Expected date of discharge: 10/19/19 Attending physician: Brennon [facility] MD Consults: 10/16/19 17:35 Consult Physician Routine Consulting Provider: Julia Malagon Consult Reason/Comments: H&P and medical Do you want consulting provider notified?: Yes Primary care physician: Matt Mcmillan - Discharge Diagnosis(es) (1) Major depressive disorder without psychotic features Current Visit: Yes Status: Acute Priority: High (2) Anxiety disorder Current Visit: Yes Status: Acute Priority: Medium Hospital Course: Admission HPI: Patient is a 28-year-old female with a history of depression and anxiety currently lives in a house with her and 3 children and 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 Patient presented to the hospital yesterday with a complaint of depression and taking approximately 2 mg of Xanax in a suicide attempt. Patient was directable today upon evaluation over. Be anxious and tearful. Patient states that she has been dealing with several stressors in her life including her stepfather passing away from pancreatic cancer in December of this year, her best friend committed suicide earlier this year, her mom attempting suicide by overdosing and also having several fights with her . She claims that she has been not coping well with all of these stressors including that "it's eating me up inside". Patient claims that she has high anxiety and has been avoiding leaving the house. She states that she has had tearful episodes and has been compliant with her medications Xanax and Wellbutrin however finding it not helpful. She states that yesterday she got into a fight with her and claims that she had no sleep and was feeling anxious and overdosed on Xanax and claimed that she wanted to "leave the world" and techs that her could buy. At that time her came back home and called the police as patient was passed out on her bed. Patient was tearful about it when describing the episode and states that "I regretted it immediately" and described wanting to live for her children. She claims that she has been sleeping approximately 2 hours a night has poor concentration and guilt and poor appetite. Patient denies any suicidal or homicidal ideations intent or plan. At this time patient denies any auditory or visual hallucinations. Patient denies any flight of ideas racing thoughts and increased in goal directed behavior. Patient denies using any recreational drugs at this time denies any cigarettes or alcohol marijuana use. Hospital course: Upon admission to the unit patient was initially depressed and anxious. Patient was however directable and agreeable to commence treatment. Patient got along well with other patients on the unit and followed unit protocol. Patient was compliant with the medications and denied any side effects throughout hospital course. Patient was started on Zoloft and titrated up to a dose of 100 mg daily for mood/anxiety. Patient was also started on trazodone 25 mg nightly for insomnia/mood. Patient was also started on BuSpar 10 mg twice a day for anxiety. Patient spoke of her stressors and engaged in therapy both group and individual. Patient was also seen by medical team for history and physical exam. Throughout the course of the hospitalization patient gradually improved with regards to mood, anxiety, sleep and became future oriented with improved insight and judgment. On the day of discharge patient denied any suicidal or homicidal ideations intent or plan denied any auditory or visual hallucinations. Patient endorsed wanting to live for her children and her health. Patient denied any paranoia and did not endorse any delusions. Patient does not have a significant history of substance abuse however was counseled on abstaining from all substances including alcohol and marijuana. Patient was also counseled on the medications and need for regular compliance and was encouraged to follow-up with their outpatient appointment for mental health and also for primary care. Prior to discharge a family meeting will be arranged by social media campaign manager to answer any questions and ensure safety upon discharge. Mental status exam: General Appearance: Patient appears to be stated age is alert, pleasant, and cooperative. Patient is in no acute distress and has fair hygiene and grooming Behavior: Patient is calmly seated without any agitated behavior. Speech: Patient's speech is fluent and nonpressured. Mood/Affect: Patient reports their mood is "much better", affect is congruent and euthymic. Suicidality/Homicidality: Patient denies having any suicidal or homicidal ideation intent or plan. Perceptions: Patient denies any auditory or visual hallucinations. Though content/process: There is no evidence of any delusional thought content and thought process is linear and goal-directed. Future oriented. Memory and concentration: AOX3, grossly intact for the purposes of this session. Can spell "WORLD" backwards correctly. Judgment and insight: fair, improved Impression: Major depressive disorder without psychotic features Anxiety disorder unspecified Plan: -Continue with discharge today as patient has improved and stabilized psychiatrically and is not currently an imminent threat to herself and/or others. -Continue medications: Zoloft 100 mg daily for mood/anxiety, trazodone 25 mg daily at bedtime for insomnia/mood, BuSpar 10 mg twice a day for anxiety. -Manager Home discussed benzodiazepines including Xanax and their addictive potential and abuse potential as well and advised patient not to be on them at this time. -Patient was counseled on the need for medication compliance and appropriate follow-up at mental health and also primary care for medical issues. Patient verbalized understanding and agreed. -Social work to arrange for and conduct family meeting to ensure safety upon discharge and answer any questions/concerns. Social work also to arrange for patients follow up appointments [facility] for psychiatric care along with follow up with primary care provider. Patient also has a therapy appointment on Tuesday of next week with her therapist [facility]. -Patient counseled on abstaining from recreational drugs and marijuana and alcohol. Was informed/educated on the adverse effects on their physical and men [facility]. Patient verbally agreed and understood -Patient was instructed to return to the hospital or seek immediate medical care if their psychiatric or medical symptoms do worsen or reoccur. Allergies Allergy/AdvReac Type Severity Reaction Status Date / Time nickel Allergy Rash/Hives Verified 10/16/19 18:37 monosodium glutamate [MSG] AdvReac CONGESTION Verified 10/16/19 18:37 morphine AdvReac LOW OXYGEN Verified 10/16/19 18:37 LEVELS tramadol AdvReac DIZZY Verified 10/16/19 18:37 Laboratory Results WBC 5.5 k/uL (3.8-10.6) 10/17/19 07:22 RBC 4.23 m/uL (3.80-5.40) 10/17/19 07:22 Hgb 13.2 gm/dL (11.4-16.0) 10/17/19 07:22 Hct 39.3 % (34.0-46.0) 10/17/19 07:22 MCV 92.8 fL (80.0-100.0) 10/17/19 07:22 MCH 31.2 pg (25.0-35.0) 10/17/19 07:22 MCHC 33.6 g/dL (31.0-37.0) 10/17/19 07:22 RDW 12.8 % (11.5-15.5) 10/17/19 07:22 Plt Count 304 k/uL (150-450) 10/17/19 07:22 Neutrophils % 49 % 10/17/19 07:22 Lymphocytes % 35 % 10/17/19 07:22 Monocytes % 8 % 10/17/19 07:22 Eosinophils % 4 % 10/17/19 07:22 Basophils % 1 % 10/17/19 07:22 Neutrophils # 2.7 k/uL (1.3-7.7) 10/17/19 07:22 Lymphocytes # 1.9 k/uL (1.0-4.8) 10/17/19 07:22 Monocytes # 0.5 k/uL (0-1.0) 10/17/19 07:22 Eosinophils # 0.2 k/uL (0-0.7) 10/17/19 07:22 Basophils # 0.0 k/uL (0-0.2) 10/17/19 07:22 PT 10.1 sec (9.0-12.0) 10/16/19 11:52 INR 0.9 (<1.2) 10/16/19 11:52 Sodium 139 mmol/L (137-145) 10/17/19 07:22 Potassium 4.7 mmol/L (3.5-5.1) 10/17/19 07:22 Chloride 109 mmol/L (98-107) H 10/17/19 07:22 Carbon Dioxide 24 mmol/L (22-30) 10/17/19 07:22 Anion Gap 6 mmol/L 10/17/19 07:22 BUN 12 mg/dL (7-17) 10/17/19 07:22 Creatinine 0.89 mg/dL (0.52-1.04) 10/17/19 07:22 Est GFR (CKD-EPI)AfAm >90 (>60 ml/min/1.73 sqM) 10/17/19 07:22 Est GFR (CKD-EPI)NonAf 87 (>60 ml/min/1.73 sqM) 10/17/19 07:22 Glucose 94 mg/dL (74-99) 10/17/19 07:[address] Glu mg/dL 105 10/17/19 07:22 Hemoglobin A1c 5.3 % (4.0-6.0) 10/17/19 07:22 Calcium 8.5 mg/dL (8.4-10.2) 10/17/19 07:22 Total Bilirubin 0.6 mg/dL (0.2-1.3) 10/17/19 07:22 AST 25 U/L (14-36) 10/17/19 07:22 ALT 21 U/L (9-52) 10/17/19 07:22 Alkaline Phosphatase 48 U/L (38-126) 10/17/19 07:22 Total Protein 6.0 g/dL (6.3-8.2) L 10/17/19 07:22 Albumin 3.1 g/dL (3.5-5.0) L 10/17/19 07:22 Triglycerides 110 mg/dL (<150) 10/17/19 07:22 Cholesterol 167 mg/dL (<200) 10/17/19 07:22 LDL Cholesterol, Calc 104 mg/dL (0-99) H 10/17/19 07:22 HDL Cholesterol 41 mg/dL (40-60) 10/17/19 07:22 TSH 0.483 mIU/L (0.465-4.680) 10/17/19 07:22 Urine HCG, Qual Not Detected (Not Detectd) 10/16/19 11:52 Salicylates <1.0 mg/dL 10/16/19 11:52 Urine Opiates Screen Not Detected (NotDetected) 10/16/19 11:52 Ur Oxycodone Screen Not Detected (NotDetected) 10/16/19 11:52 Urine Methadone Screen Not Detected (NotDetected) 10/16/19 11:52 Ur Propoxyphene Screen Not Detected (NotDetected) 10/16/19 11:52 Acetaminophen <10.0 ug/mL 10/16/19 11:52 Ur Barbiturates Screen Not Detected (NotDetected) 10/16/19 11:52 U Tricyclic Antidepress Not Detected (NotDetected) 10/16/19 11:52 Ur Phencyclidine Scrn Not Detected (NotDetected) 10/16/19 11:52 Ur Amphetamines Screen Not Detected (NotDetected) 10/16/19 11:52 U Methamphetamines Scrn Not Detected (NotDetected) 10/16/19 11:52 U Benzodiazepines Scrn Detected (NotDetected) H 10/16/19 11:52 Urine Cocaine Screen Not Detected (NotDetected) 10/16/19 11:52 U Marijuana (THC) Screen Not Detected (NotDetected) 10/16/19 11:52 Serum Alcohol <10 mg/dL 10/16/19 11:52 Vital Signs Temp 97.7 F 10/19/19 06:28 Pulse 74 10/19/19 06:28 Resp 15 10/19/19 06:28 BP 115/62 10/19/19 06:28 Pulse Ox 99 10/16/19 11:31 Patient Condition at Discharge: Stable Plan - Discharge Summary Discharge Rx Participant: No New Discharge Prescriptions: New busPIRone HCl [Buspar] 10 mg PO BID 28 Days tab traZODone HCL [Desyrel] 25 mg PO HS 28 Days tab Sertraline [Zoloft] 100 mg PO DAILY 28 Days tab Discontinued ALPRAZolam [Xanax] 0.25 mg PO HS PRN PRN Reason: Anxiety buPROPion SR [Wellbutrin Sr] 150 mg PO DAILY Discharge Medication List Sertraline [Zoloft] 100 mg PO DAILY 28 Days tab 10/19/19 [Rx] busPIRone HCl [Buspar] 10 mg PO BID 28 Days tab 10/19/19 [Rx] traZODone HCL [Desyrel] 25 mg PO HS 28 Days tab 10/19/19 [Rx] Follow up Appointment(s)/Referral(s): Deyanira Gutierrez MD [Primary Care Provider] - 1-2 days Patient Instructions/Handouts: Suicide Prevention (DC) Activity/Diet/Wound Care/Special Instructions: Activity and diet as tolerated. Avoid the use of street drugs and alcohol. Take all medications as prescribed. When you are in need of refills on your medications please contact your medical provider and/or outpatient psychiatrist to have this done. Please go to scheduled outpatient appointment for aftercare treatment. If symptoms return or become worse, call the crisis line at and/or go to the nearest emergency room for evaluation. Discharge Disposition: HOME SELF-CARE
== END 2019-10-19 11:33 | disposition home or self-care (01) | DRG 885 ==
LOC: EC 11:29 → 3MHU 16:59
PROVIDERS: ADMIT Psychiatry & Neurology Psychiatry; ATTEND Psychiatry & Neurology Psychiatry
DX: F32.2 Major depressive disorder, single episode, severe without psychotic features (principal); Z68.41 Body mass index [BMI] 40.0-44.9, adult; M41.9 Scoliosis, unspecified; Z23 Encounter for immunization; E66.9 Obesity, unspecified; T42.4X2A Poisoning by benzodiazepines, intentional self-harm, initial encounter; G47.00 Insomnia, unspecified; F41.9 Anxiety disorder, unspecified; Z79.899 Other long term (current) drug therapy; Z98.890 Other specified postprocedural states; Z86.2 Personal history of diseases of the blood and blood-forming organs and certain disorders involving the immune mechanism; Z91.02 Food additives allergy status; Z88.5 Allergy status to narcotic agent; Z91.048 Other nonmedicinal substance allergy status; Z83.3 Family history of diabetes mellitus; Z81.8 Family history of other mental and behavioral disorders
CPT/HCPCS: 36415; 80053; 80061; 80306; 80320; 80329; 81025; 82075; 83036; 83520; 84443; 85025; 85610; 90686; 93005; 99285

== ENCOUNTER → 2020-10-21 | Outpatient (CLI) | payer BC | END | disposition home or self-care (01) | LOC: LABWHC1 16:13 | PROVIDERS: ATTEND Family Medicine | DX: Z20.828 Contact with and (suspected) exposure to other viral communicable diseases (principal) | CPT/HCPCS: U0003; C9803 ==

== ENCOUNTER 2021-01-31 13:49 | Emergency (ER) | payer BC ==
[2021-01-31 13:53] VITALS: TEMP 98.2
--- NOTE | 2021-01-31 14:51 | ED ---
Psych HPI - General Chief Complaint: Psychiatric Symptoms Stated Complaint: Mental health Time Seen by Provider: 01/31/21 13:55 Source: patient Mode of arrival: ambulatory - History of Present Illness Initial Comments: 30-year-old female with history of depression presents to the emergency department for psychiatric evaluation. Patient states she has been overwhelmed recently because she has 3 kids and one of them is special needs. Patient reports she does have history of suicidal attempts for approximately one year ago. Patient reports she has suicidal thoughts currently without a plan. Patient does not want to discuss anything additional. Patient states she would prefer a psychiatric evaluation. Patient takes 150 mg of Zoloft. - Related Data Previous Rx's Medication Instructions Recorded Sertraline [Zoloft] 100 mg PO DAILY 28 Days tab 10/19/19 busPIRone HCl [Buspar] 10 mg PO BID 28 Days tab 10/19/19 traZODone HCL [Desyrel] 25 mg PO HS 28 Days tab 10/19/19 Allergies Allergy/AdvReac Type Severity Reaction Status Date / Time nickel Allergy Rash/Hives Verified 10/16/19 18:37 monosodium glutamate [MSG] AdvReac CONGESTION Verified 10/16/19 18:37 morphine AdvReac LOW OXYGEN Verified 10/16/19 18:37 LEVELS tramadol AdvReac DIZZY Verified 10/16/19 18:37 Review of Systems ROS Statement: Those systems with pertinent positive or pertinent negative responses have been documented in the HPI. ROS Other: All systems not noted in ROS Statement are negative. Past Medical History Past Medical History: No Reported History Additional Past Medical History / Comment(s): anemia, scoliosis, History of Any Multi-Drug Resistant Organisms: None Reported Past Surgical History: Orthopedic Surgery Additional Past Surgical History / Comment(s): D&C, ablation, right arm fixed, Past Anesthesia/Blood Transfusion Reactions: No Reported Reaction Past Psychological History: Anxiety, Depression Smoking Status: Never smoker Past Alcohol Use History: None Reported Past Drug Use History: None Reported - Past Family History Mother Family Medical History: Cancer Father Family Medical History: Diabetes Mellitus General Exam Limitations: no limitations General appearance: alert, in no apparent distress, obese Head exam: Present: atraumatic, normocephalic, normal inspection Eye exam: Present: normal appearance, PERRL, EOMI Pupils: Present: normal accommodation ENT exam: Present: normal exam, normal oropharynx, mucous membranes moist Neck exam: Present: normal inspection, full ROM. Absent: tenderness Respiratory exam: Present: normal lung sounds bilaterally. Absent: respiratory distress Cardiovascular Exam: Present: regular rate, normal rhythm, normal heart sounds Extremities exam: Present: normal inspection, full ROM Back exam: Present: normal inspection, full ROM Neurological exam: Present: alert, oriented X3, normal gait Psychiatric exam: Present: normal affect, depressed Skin exam: Present: warm, dry, intact, normal color Course Vital Signs 01/31/21 01/31/21 13:50 16:40 Temperature 98.2 F Pulse Rate 97 86 Respiratory 18 16 Rate Blood Pressure 163/115 148/72 O2 Sat by Pulse 99 16 L Oximetry Medical Decision Making - Medical Decision Making 30-year-old female presented emergency department for psychiatric evaluation. Physical examination is unremarkable. Patient is very emotional and crying when talking. Patient was evaluated by EPS. She will be discharged home with outpatient follow-up to psychiatry. Return parameters discussed with patient is understanding and agreeable. Case discussed with Dr. Shelley Disposition Clinical Impression: Adjustment reaction of adult life Disposition: HOME SELF-CARE Condition: Stable Instructions (If sedation given, give patient instructions): Depression (DC) Additional Instructions: Follow-up with his psychiatrist. Return to emergency department if symptoms worsen. Is patient prescribed a controlled substance at d/c from ED?: No Referrals: None,Stated [Primary Care Provider] - 1-2 days Time of Disposition: 16:20
[2021-01-31 16:41] VITALS: BP 148/72; PULSE 86; RESP 16
== END 2021-01-31 16:40 | disposition home or self-care (01) ==
LOC: EC 13:49
DX: F43.20 Adjustment disorder, unspecified (principal); Z83.3 Family history of diabetes mellitus; Z88.5 Allergy status to narcotic agent; Z88.8 Allergy status to other drugs, medicaments and biological substances
CPT/HCPCS: 82075; 99284

== ENCOUNTER 2021-05-04 09:31 | Emergency (ER) | payer BC ==
[2021-05-04 09:40] VITALS: BP 107/62; PULSE 67; RESP 18; TEMP 98.7
[2021-05-04] MEDS ORDERED: oxyCODONE-APAP 10-325MG 1 EACH TAB PO STA (10:19)
--- NOTE | 2021-05-04 10:20 | ED ---
General Adult HPI - General Chief complaint: Extremity Injury, Lower Stated complaint: ankle injury Time Seen by Provider: 05/04/21 09:58 Source: patient Mode of arrival: wheelchair Limitations: physical limitation - History of Present Illness Initial comments: Dictation was produced using [employer] dictation software. please excuse any grammatical, word or spelling errors. Chief Complaint: 30-year-old female presents with bilateral ankle pain History of Present Illness: 30-year-old female she presents today with bilateral ankle pain. Patient was carrying objects and going on the stairs when she missed a step. She states she inverted both ankles. Event happened approximately 45 minutes prior to arrival. She complains of bilateral lateral ankle pain. Patient states she had bilateral tubal ligation and her significant other who she is sexually active with had a vasectomy. The ROS documented in this emergency department record has been reviewed and confirmed by me. Those systems with pertinent positive or negative responses have been documented in the HPI. All other systems are other negative and/or noncontributory. PHYSICAL EXAM: General Impression: Alert and oriented x3, acute distress at 30 pain HEENT: Normocephalic atraumatic, extra-ocular movements intact, pupils equal and reactive to light bilaterally, mucous membranes moist. Cardiovascular: Heart regular rate and rhythm Chest: Able to complete full sentences, no retractions, no tachypnea Abdomen: abdomen soft, non-tender, non-distended, no organomegaly Musculoskeletal: Pulses present and equal in all extremities, no peripheral edema Ankles: Bilateral tenderness to palpation over the anterior talofibular ligament Motor: no focal deficits noted Neurological: CN II-XII grossly intact, no focal motor or sensory deficits noted Skin: Intact with no visualized rashes Psych: Normal affect and mood ED course: 30-year-old female with inversion injuries to bilateral ankles. All signs upon arrival are within acceptable limits. Bilateral ankle and foot x-rays are unremarkable. Click or presentation consistent with bilateral ankle sprains. Patient given by mouth analgesia. Patient discharged. Counseled on [place] therapy. - Related Data Previous Rx's Medication Instructions Recorded HYDROcodone/APAP 5-325MG [[place] 1 tab PO Q6HR PRN 3 Days #12 tab 05/04/21 5-325] Allergies Allergy/AdvReac Type Severity Reaction Status Date / Time aluminum Allergy Rash/Hives Verified 06/07/21 10:36 nickel Allergy Rash/Hives Verified 05/04/21 10:36 monosodium glutamate [MSG] AdvReac CONGESTION Verified 05/04/21 10:36 morphine AdvReac LOW OXYGEN Verified 05/04/21 10:36 LEVELS tramadol AdvReac DIZZY Verified 05/04/21 10:36 Review of Systems ROS Statement: Those systems with pertinent positive or pertinent negative responses have been documented in the HPI. ROS Other: All systems not noted in ROS Statement are negative. Past Medical History Past Medical History: No Reported History Additional Past Medical History / Comment(s): anemia, scoliosis, History of Any Multi-Drug Resistant Organisms: None Reported Past Surgical History: Orthopedic Surgery Additional Past Surgical History / Comment(s): D&C, ablation, right arm fixed, Past Anesthesia/Blood Transfusion Reactions: No Reported Reaction Past Psychological History: Anxiety, Depression Smoking Status: Never smoker Past Alcohol Use History: None Reported Past Drug Use History: None Reported - Past Family History Mother Family Medical History: Cancer Father Family Medical History: Diabetes Mellitus General Exam Limitations: physical limitation Course Vital Signs 05/04/21 09:38 Temperature 98.7 F Pulse Rate 67 Respiratory 18 Rate Blood Pressure 107/62 O2 Sat by Pulse 99 Oximetry Disposition Clinical Impression: Ankle sprain Disposition: HOME SELF-CARE Condition: Good Instructions (If sedation given, give patient instructions): Ankle Sprain (ED) Prescriptions: HYDROcodone/APAP 5-325MG [[place] 5-325] 1 tab PO Q6HR PRN 3 Days #12 tab PRN Reason: Severe Pain Is patient prescribed a controlled substance at d/c from ED?: Yes If prescribed controlled substance>3 days was MAPS reviewed?: Prescribed <3 Days Referrals: Laith Hunter III, MD [Primary Care Provider] - 1-2 days
--- NOTE | 2021-05-04 10:33 | XR ---
EXAMINATION TYPE: XR ankle complete bilateral, XR foot complete bilateral DATE OF EXAM: 05/04/2021 CLINICAL HISTORY: Slip and fall injury with pain. TECHNIQUE: Frontal, lateral and oblique images of the bilateral ankles and feet are obtained. COMPARISON: None. FINDINGS: There is no acute fracture/dislocation evident in either ankle. The ankle mortise appears within normal limits. Moderate to severe subcutaneous edema soft tissue swelling over lateral malleo mary jane right ankle. There is no acute fracture or dislocation evident in either foot. The joint spaces in the bilateral feet are preserved. Accessory ossicle near the cuboid bone identified bilaterally. Overlying soft ti ssue is unremarkable bilaterally. IMPRESSION: There is no acute fracture or dislocation in either ankle or foot.
== END 2021-05-04 11:31 | disposition home or self-care (01) ==
LOC: EC 09:31
DX: S93.401A Sprain of unspecified ligament of right ankle, initial encounter (principal); S93.402A Sprain of unspecified ligament of left ankle, initial encounter; F32.9 Major depressive disorder, single episode, unspecified; W10.9XXA Fall (on) (from) unspecified stairs and steps, initial encounter
CPT/HCPCS: 99284

== ENCOUNTER 2021-10-16 10:05 | Emergency (ER) | payer BC ==
[2021-10-16] MEDS ORDERED: ALBUTEROL HFA INHALER INHALATION STA (10:50)
[2021-10-16] MEDS ORDERED: ACETAMINOPHEN TAB 500 MG TAB PO STA (10:50)
[2021-10-16] MEDS ORDERED: SODIUM CHLORIDE 0.9% 1,000 ML IV STA (10:51)
--- NOTE | 2021-10-16 10:54 | ED ---
General Adult HPI - General Chief complaint: Shortness of Breath Stated complaint: covid+, increased SOB Time Seen by Provider: 10/16/21 10:43 Source: patient, RN notes reviewed Mode of arrival: wheelchair Limitations: no limitations - History of Present Illness Initial comments: Patient is a pleasant 30-year-old female presenting to the emergency Department with concern for COVID-19 infection. Patient was exposed on the seventh of this month and started developing symptoms on the eighth. Patient does have cough and some shortness of breath. A molina has had fevers. Patient has significant fatigue. Patient has loss of taste and loss of smell. Patient has had decreased oral intake. - Related Data Home Medications Medication Instructions Recorded Confirmed Dm/Acetaminophen/Doxylamine [Vicks 30 ml PO Q4H PRN 10/16/21 10/16/21 Nyquil Cold-Flu Liquid] Phenylephrine/Dm/Acetaminop/GG 30 ml PO Q4H PRN 10/16/21 10/16/21 [Vicks Dayquil Severe Cold-Flu] Previous Rx's Medication Instructions Recorded Albuterol Sulfate [Albuterol 2 puff INHALATION Q6H PRN #8.5 gm 10/16/21 Sulfate Hfa] Allergies Allergy/AdvReac Type Severity Reaction Status Date / Time aluminum Allergy Rash/Hives Verified 10/16/21 12:01 nickel Allergy Rash/Hives Verified 10/16/21 12:01 monosodium glutamate [MSG] AdvReac CONGESTION Verified 10/16/21 12:01 morphine AdvReac LOW OXYGEN Verified 10/16/21 12:01 LEVELS tramadol AdvReac DIZZY Verified 10/16/21 12:01 Review of Systems ROS Statement: Those systems with pertinent positive or pertinent negative responses have been documented in the HPI. ROS Other: All systems not noted in ROS Statement are negative. Constitutional: Reports: fever, chills Eyes: Denies: eye pain ENT: Denies: ear pain Respiratory: Reports: cough, dyspnea Cardiovascular: Denies: chest pain Endocrine: Reports: fatigue Gastrointestinal: Denies: abdominal pain Genitourinary: Denies: dysuria Musculoskeletal: Denies: back pain Skin: Denies: rash Neurological: Denies: confusion Past Medical History Past Medical History: No Reported History Additional Past Medical History / Comment(s): anemia, scoliosis, COVID History of Any Multi-Drug Resistant Organisms: None Reported Past Surgical History: Orthopedic Surgery Additional Past Surgical History / Comment(s): D&C, ablation, right arm fixed, Past Anesthesia/Blood Transfusion Reactions: No Reported Reaction Past Psychological History: Anxiety, Depression Smoking Status: Never smoker Past Alcohol Use History: None Reported Past Drug Use History: None Reported - Past Family History Mother Family Medical History: Cancer Father Family Medical History: Diabetes Mellitus General Exam Limitations: no limitations General appearance: alert, in no apparent distress Head exam: Present: normocephalic Eye exam: Present: normal appearance Neck exam: Present: normal inspection Respiratory exam: Present: normal lung sounds bilaterally. Absent: respiratory distress, wheezes Cardiovascular Exam: Present: tachycardia GI/Abdominal exam: Present: soft. Absent: tenderness Extremities exam: Present: normal inspection Neurological exam: Present: alert Psychiatric exam: Present: normal affect, normal mood Skin exam: Present: normal color Course Vital Signs 10/16/21 10/16/21 10/16/21 10:35 11:52 13:10 Temperature 101.3 F H 100.2 F H 99.8 F H Pulse Rate 121 H 102 H 100 Respiratory 20 18 18 Rate Blood Pressure 107/69 110/65 105/64 O2 Sat by Pulse 97 96 95 Oximetry - Reevaluation(s) Reevaluation #1: 10/16/21 10:52 Patient is not a candidate for monoclonal antibody secondary to symptoms greater than 10 days Medical Decision Making - Medical Decision Making Patient reevaluated and resting comfortably in bed. Patient is improved. Patient updated on results and need for follow-up. - Lab Data Result diagrams: 10/16/21 11:08 10/16/21 11:08 Lab Results 10/16/21 10/16/21 10/16/21 Range/Units 11:08 11:08 11:08 WBC 3.4 L (3.8-10.6) k/uL RBC 4.50 (3.80-5.40) m/uL Hgb 13.5 (11.4-16.0) gm/dL Hct 39.2 (34.0-46.0) % MCV 87.2 (80.0-100.0) fL MCH 30.0 (25.0-35.0) pg MCHC 34.4 (31.0-37.0) g/dL RDW 13.5 (11.5-15.5) % Plt Count 107 L (150-450) k/uL MPV 9.9 Neutrophils % 60 % Lymphocytes % 33 % Monocytes % 3 % Eosinophils % 0 % Basophils % 0 % Neutrophils # 2.0 (1.3-7.7) k/uL Lymphocytes # 1.1 (1.0-4.8) k/uL Monocytes # 0.1 (0-1.0) k/uL Eosinophils # 0.0 (0-0.7) k/uL Basophils # 0.0 (0-0.2) k/uL PT 10.0 (9.0-12.0) sec INR 0.9 (<1.2) APTT 26.2 (22.0-30.0) sec D-Dimer 1.51 H (<0.60) mg/L FEU Sodium 136 L (137-145) mmol/L Potassium 4.1 (3.5-5.1) mmol/L Chloride 106 (98-107) mmol/L Carbon Dioxide 24 (22-30) mmol/L Anion Gap 6 mmol/L BUN 12 (7-17) mg/dL Creatinine 0.85 (0.52-1.04) mg/dL Est GFR (CKD-EPI)AfAm >90 (>60 ml/min/1.73 sqM) Est GFR (CKD-EPI)NonAf >90 (>60 ml/min/1.73 sqM) Glucose 104 H (74-99) mg/dL Plasma Lactic Acid Musa (0.7-2.0) mmol/L Calcium 8.4 (8.4-10.2) mg/dL Magnesium 2.0 (1.6-2.3) mg/dL Total Bilirubin 0.7 (0.2-1.3) mg/dL AST 87 H (14-36) U/L ALT 54 H (4-34) U/L Alkaline Phosphatase 191 H (38-126) U/L Lactate Dehydrogenase 1202 H (313-618) U/L C-Reactive Protein 1.4 H (<1.0) mg/dL Total Protein 7.5 (6.3-8.2) g/dL Albumin 3.5 (3.5-5.0) g/dL 10/16/21 Range/Units 11:08 WBC (3.8-10.6) k/uL RBC (3.80-5.40) m/uL Hgb (11.4-16.0) gm/dL Hct (34.0-46.0) % MCV (80.0-100.0) fL MCH (25.0-35.0) pg MCHC (31.0-37.0) g/dL RDW (11.5-15.5) % Plt Count (150-450) k/uL MPV Neutrophils % % Lymphocytes % % Monocytes % % Eosinophils % % Basophils % % Neutrophils # (1.3-7.7) k/uL Lymphocytes # (1.0-4.8) k/uL Monocytes # (0-1.0) k/uL Eosinophils # (0-0.7) k/uL Basophils # (0-0.2) k/uL PT (9.0-12.0) sec INR (<1.2) APTT (22.0-30.0) sec D-Dimer (<0.60) mg/L FEU Sodium (137-145) mmol/L Potassium (3.5-5.1) mmol/L Chloride (98-107) mmol/L Carbon Dioxide (22-30) mmol/L Anion Gap mmol/L BUN (7-17) mg/dL Creatinine (0.52-1.04) mg/dL Est GFR (CKD-EPI)AfAm (>60 ml/min/1.73 sqM) Est GFR (CKD-EPI)NonAf (>60 ml/min/1.73 sqM) Glucose (74-99) mg/dL Plasma Lactic Acid Musa 1.1 (0.7-2.0) mmol/L Calcium (8.4-10.2) mg/dL Magnesium (1.6-2.3) mg/dL Total Bilirubin (0.2-1.3) mg/dL AST (14-36) U/L ALT (4-34) U/L Alkaline Phosphatase (38-126) U/L Lactate Dehydrogenase (313-618) U/L C-Reactive Protein (<1.0) mg/dL Total Protein (6.3-8.2) g/dL Albumin (3.5-5.0) g/dL - Radiology Data Radiology results: report reviewed (Computed tomography scan of the chest shows infiltrates. Suboptimal study. No pulmonary embolism. ), image reviewed (Chest x-ray shows patchy densities at lung bases) Disposition Clinical Impression: COVID-19 Disposition: HOME SELF-CARE Condition: Stable Instructions (If sedation given, give patient instructions): Coronavirus Disease 2019 (COVID-19), Fever in Adults (ED) Additional Instructions: Kyti-ppy-silaiuu Tylenol or Motrin as needed. Kmuw-frp-rliyzim vitamin C, vitamin D, and zinc. Melatonin at bedtime. Continue quarantine per CDC guidelines. Please follow-up with primary care physician in the next day or 2 for recheck. Return for difficulty breathing, not tolerating fluids, worsening symptoms or other concerns. Prescription for inhaler has been sent to pharmacy. Prescriptions: Albuterol Sulfate [Albuterol Sulfate Hfa] 2 puff INHALATION Q6H PRN #8.5 gm PRN Reason: Shortness Of Breath Is patient prescribed a controlled substance at d/c from ED?: No Referrals: Laith Hunter III, MD [Primary Care Provider] - 1-2 days Time of Disposition: 13:19
--- NOTE | 2021-10-16 11:16 | XR ---
EXAMINATION TYPE: XR chest 1V portable DATE OF EXAM: 10/16/2021 COMPARISON: Chest x-ray 04/27/2016 HISTORY: Congestion in the chest, fever, suspected covid 19 pneumonia TECHNIQUE: Single frontal view of the chest is obtained. FINDINGS: There is patchy density suspected at the lung bases, patient is rotated, there is no pneum othorax or pleural effusion The cardiac silhouette size is within normal limits. The osseous struct ures are intact. IMPRESSION: Findings could be indicative of covid pneumonia, follow-up PA and lateral chest x-ray ma y be of benefit as indicated
[2021-10-16 11:52] LABS: Basophils % (A) 0 %; Eosinophils % (A) 0 %; HCT 39.2 % (34.0-46.0); HGB 13.5 gm/dL (11.4-16.0); Lymphocytes # (A) 1.1 k/uL (1.0-4.8); Lymphocytes % (A) 33 %; MCHC 34.4 g/dL (31.0-37.0); MCV 87.2 fL (80.0-100.0); Mean Platelet Volume 9.9; Monocytes # (A) 0.1 k/uL (0-1.0); Monocytes % (A) 3 %; Neutrophils % (A) 60 %; Platelet Count 107 k/uL (150-450); RDW 13.5 % (11.5-15.5); WBC 3.4 k/uL (3.8-10.6)
[2021-10-16 11:53] VITALS: RESP 18
[2021-10-16 11:53] LABS: INR 0.9 (<1.2); Partial Thromboplastin Time 26.2 sec (22.0-30.0)
[2021-10-16 12:07] LABS: ALT 54 U/L (4-34); AST 87 U/L (14-36); African American GFR (CKD) >90 (>60 ml/min/1.73 sqM); Albumin 3.5 g/dL (3.5-5.0); Alkaline Phosphatase 191 U/L (38-126); Anion Gap 6 mmol/L; Blood Urea Nitrogen 12 mg/dL (7-17); Calcium 8.4 mg/dL (8.4-10.2); Carbon Dioxide 24 mmol/L (22-30); Chloride 106 mmol/L (98-107); Glucose 104 mg/dL (74-99); LDH 1202 U/L (313-618); Non-African American GFR(CKD) >90 (>60 ml/min/1.73 sqM); Potassium 4.1 mmol/L (3.5-5.1); Sodium 136 mmol/L (137-145); Total Bilirubin 0.7 mg/dL (0.2-1.3); Total Protein 7.5 g/dL (6.3-8.2)
[2021-10-16 12:48] LABS: C Reactive Protein 1.4 mg/dL (<1.0)
--- NOTE | 2021-10-16 12:59 | CT ---
EXAMINATION TYPE: CT angio chest DATE OF EXAM: 10/16/2021 COMPARISON: CT chest January 15, 2014. Chest x-ray earlier today HISTORY: Dyspnea, +covid. CT DLP: 373.4 mGycm. Automated Exposure Control for Dose Reduction was Utilized. CONTRAST: CTA scan of the thorax is performed with IV Contrast, patient injected with 100 mL of Isovue 370, pul monary embolism protocol. MIP Images are created on CT scanner and reviewed. FINDINGS: LUNGS: Corresponding to recent x-ray there are bilateral multifocal ground glass opacities greatest i n the lower lungs where there are some organizing consolidations present. No pleural effusion or pneu mothorax seen bilaterally. MEDIASTINUM: There is a suboptimal study with near equal contrast in right and left heart systems but no convincing CT evidence for significant acute pulmonary embolism. Heterogeneity in the periphery i s present. There are prominent bilateral hilar lymph nodes presumed reactive. No cardiomegaly or p ericardial effusion is seen. OTHER: No additional significant abnormality is seen. IMPRESSION: Suboptimal study without acute pulmonary embolism. Bilateral multifocal groundglass opaci ties with organizing consolidations greatest in the lower lungs consistent with known COVID-19 infect ion.
[2021-10-16 13:11] VITALS: BP 105/64; PULSE 100; TEMP 99.8
== END 2021-10-16 13:47 | disposition home or self-care (01) ==
LOC: EC 10:05
DX: U07.1 COVID-19 (principal); F41.9 Anxiety disorder, unspecified; F32.A Depression, unspecified; Z88.1 Allergy status to other antibiotic agents; Z88.5 Allergy status to narcotic agent
CPT/HCPCS: 99285; 96360; 96361; 36415; 94640; 85379; 80053; 82728; 83605; 83615; 83735; 85025; 85610; 85730; 86140; 84145; 71045; 71275; Q9967